=== PATIENT | male | born 1960 | race Caucasian/White ===

== ENCOUNTER 2016-11-29 18:59 | Inpatient (IN) | payer BC ==
[2016-11-29] MEDS ORDERED: Sodium Chloride 0.9% 10 ML Syringe FLUSH PRN (20:07)
[2016-11-29] MEDS ORDERED: Ondansetron 4 MG Tab.DIS PO ONE (20:08)
[2016-11-29] MEDS ORDERED: Sodium Chloride 0.9% 1,000 ML IV SCH (20:15)
[2016-11-29] MEDS ORDERED: Pantoprazole 40 MG Tab.CR PO PRN (23:33)
[2016-11-30] MEDS ORDERED: Acetaminophen 325 MG Tab PO PRN (01:34)
[2016-11-30] MEDS: Amoxicillin 500 MG Cap PO SCH ×4 (01:50→23:59)
[2016-11-30] MEDS: QUEtiapine 100 MG Tab PO PRN (01:50)
[2016-11-30] MEDS: Mometasone Furoate Nasal Spray 17 GM Canister NASBOTH SCH ×2 (06:03→20:58)
--- NOTE | 2016-11-30 07:00 | EDM.PDOC ---
ED HISTORY OF PRESENT ILLNESS - General Chief Complaint: Gastrointestinal Problem Stated Complaint: VOMITING/DIZZINESS/SWEATY Time Seen by Provider: 11/29/16 19:35 Source: Reports: Family History Limitations: Reports: Altered mental status - History of Present Illness INITIAL COMMENTS - FREE TEXT/NARRATIVE: This patient comes in with some vomiting and just general feeling bad all over. Back in August he had a nephrectomy. He said it was a complex cyst and it took a long time to do the surgery to" get it all out". He said it was not malignant however. He complained of having the carotid for 3 weeks. He is said there was a sinus infection he was given a Z-Luis that didn't help so now he 's taken some amoxicillin. Today he started vomiting at 4 PM has vomited a couple of times and then had dry heaves. He said he coughed up a little bit of bloody sputum a while ago and brought the sample with him. He describes a feeling of be loopy. He also mentions a 40 pound weight loss since the surgery. He also had some problems with sodium and potassium after the surgery. - Related Data Allergies/ADRs: Allergies Allergy/AdvReac Type Severity Reaction Status Date / Time No Known Allergies Allergy Verified 11/29/16 19:40 Home Meds: Home Meds Levothyroxine Sodium [Levothyroxine Sodium] 75 mcg PO DAILY 08/11/14 [History] QUEtiapine Fumarate [Quetiapine Fumarate] 100 - 200 mg PO BEDTIME PRN 08/11/14 [ History] Venlafaxine HCl [Venlafaxine ER] 75 mg PO TID 08/11/14 [History] clonazePAM [Clonazepam] 1 mg PO ACBREAKFAST 08/11/14 [History] Aspirin [Ecotrin] 81 mg PO DAILY 07/09/16 [History] Calcium Citrate/Vitamin D3 [Calcium Citrate - Vit D Tablet] 1 tab PO BID [History] Cranberry Extract/Multivitamin [Utymax Powder Pack] 1 cap PO DAILY 07/09/16 [ History] Dextroamphetamine/Amphetamine [Adderall] 30 mg PO DAILY 07/09/16 [History] Multivitamin [Men's Multi-Vitamin] 1 tab PO DAILY 07/09/16 [History] OXcarbazepine [Trileptal] 300 mg PO BID 07/09/16 [History] [place]-3/DHA/Epa/Fish Oil [[place] 3 500 Softgel] 2 cap PO DAILY 07/09/16 [History] Omeprazole 20 mg PO DAILY PRN 07/09/16 [History] Vitamin B Complex [B Complex] 1 tab PO DAILY 07/09/16 [History] ClonazePAM [KlonoPIN] 1 mg PO ACLUNCH 10/30/16 [History] ClonazePAM [KlonoPIN] 1.5 tab PO ACDINNER 10/30/16 [History] Mometasone Furoate [Nasonex] 2 sprays INH DAILY 10/30/16 [History] Amoxicillin 1 cap PO Q8H 11/29/16 [History] Past Medical History HEENT History: Reports: Impaired vision Cardiovascular History: Reports: Hypertension Gastrointestinal History: Reports: None Genitourinary History: Reports: Renal calculus, Other (see below) Other Genitourinary History: cysts on left kidney Musculoskeletal History: Reports: Arthritis, Other (see below) Other Musculoskeletal History: Bursitis Neurological History: Reports: Migraines Psychiatric History: Reports: Anxiety, Bipolar, Depression, OCD Endocrine/Metabolic History: Reports: Hypothyroidism Other Endocrine/Metabolic History: thyroid disease - Past Surgical History HEENT Surgical History: Reports: Tonsillectomy Cardiovascular Surgical History: Reports: None GI Surgical History: Reports: Bariatric procedure Male Surgical History: Reports: Other (see below) Other Male Surgeries/Procedures: right kidney removed, for mass of small cysts. Endocrine Surgical History: Reports: None Musculoskeletal Surgical History: Reports: None Dermatological Surgical History: Reports: None Social & Family History - Tobacco Use Smoking Status *Q: Never Smoker Second Hand Smoke Exposure: Yes - Caffeine Use Caffeine Use: Reports: None - Alcohol Use Days Per Week of Alcohol Use: 0 - Recreational Drug Use Recreational Drug Use: No ED ROS GENERAL - Review of Systems Review Of Systems: See Below Constitutional: Reports: malaise, weakness, decreased appetite, weight loss HEENT: Reports: No symptoms Respiratory: Reports: no symptoms Cardiovascular: Reports: No symptoms Endocrine: Reports: no symptoms GI/Abdominal: Reports: Nausea, Vomiting : Reports: no symptoms Musculoskeletal: Reports: no symptoms Skin: Reports: no symptoms Neurological: Reports: no symptoms Psychiatric: Reports: No symptoms Hematologic/Lymphatic: Reports: no symptoms Immunologic: Reports: no symptoms ED EXAM, GENERAL - Physical Exam Exam: See Below Exam Limited By: No limitations General Appearance: alert, moderate distress, thin (Then and chronically ill appearing) Eye Exam: bilateral eye: normal inspection Ears: normal external exam Nose: normal inspection Throat/Mouth: Normal oropharynx Head: atraumatic Neck: normal inspection Respiratory/Chest: lungs clear Cardiovascular: regular rate, rhythm, no murmur GI/Abdominal: soft, non tender Back Exam: normal inspection Extremities: normal inspection Neurological: alert, oriented, CN II-XII intact, normal cognition, no motor/ sensory deficits Psychiatric: normal affect Skin Exam: Dry, Intact, Other (Hands are very cold) Lymphatic: no adenopathy Course - Vital Signs Last Recorded V/S: Last Vital Signs Temp 35.8 C 11/30/16 04:00 Pulse 76 11/30/16 04:00 Resp 18 11/30/16 04:00 BP 103/70 11/30/16 04:00 Pulse Ox 98 11/30/16 04:00 - Orders/Labs/Meds Orders: Active Orders 24 hr Category Date Time Status Patient Status [ADT] Routine ADT 11/29/16 22:46 Active Chest 2V [CR] Urgent Exams 11/29/16 20:07 Taken Sodium Chloride 0.9% [Normal Saline] 1,000 ml Med 11/29/16 20:15 Active IV ASDIRECTED Sodium Chloride 0.9% [Saline Flush] Med 11/29/16 20:07 Active 10 ml FLUSH ASDIRECTED PRN Saline Lock Insert [OM.PC] Urgent Oth 11/29/16 20:07 Ordered Medication Orders Acetaminophen (Tylenol) 650 mg PO Q4H PRN PRN Reason: Pain Last Admin: 11/30/16 01:50 Dose: 650 mg Amoxicillin (Amoxil) 500 mg PO Q8H MENDEZ Last Admin: 11/30/16 01:50 Dose: 500 mg Clonazepam (Klonopin) 1 mg PO ACLUNCH MENDEZ Clonazepam (Klonopin) 1.5 mg PO ACDINNER MENDEZ Clonazepam (Klonopin) 1 mg PO ACBREAKFAST MENDEZ Sodium Chloride (Normal Saline) 1,000 mls @ 999 mls/hr IV ASDIRECTED MENDEZ Last Admin: 11/29/16 20:32 Dose: 999 mls/hr Levothyroxine Sodium (Levothyroxine) 75 mcg PO DAILY MENDEZ Mometasone Furoate (Nasonex [place]) 0 gm NASBOTH BEDTIME MENDEZ Last Admin: 11/30/16 06:03 Dose: Oxcarbazepine (Trileptal) 300 mg PO BID [facility] Pantoprazole Sodium (Protonix) 40 mg PO DAILY PRN PRN Reason: Heartburn Pneumococcal Polyvalent Vaccine (Pneumovax 23) 0.5 ml SUBCUT .ONCE ONE Stop: 11/30/16 10:01 Quetiapine Fumarate (Seroquel) 100 - 200 mg PO BEDTIME PRN PRN Reason: Insomnia Last Admin: 11/30/16 01:50 Dose: 150 mg Sodium Chloride (Saline Flush) 10 ml FLUSH ASDIRECTED PRN PRN Reason: Keep Vein Open Last Admin: 11/29/16 20:32 Dose: 10 ml Venlafaxine HCl (Effexor Xr) 75 mg PO TID [facility] Labs: Laboratory Tests 11/29/16 11/29/16 11/29/16 Range/Units 20:07 20:07 20:39 WBC 12.8 H (4.5-11.0) K/uL RBC 4.25 L (4.30-5.90) M/uL Hgb 10.7 L (12.0-15.0) g/dL Hct 33.3 L (40.0-54.0) % MCV 78 L (80-98) fL MCH 25 L (27-31) pg MCHC 32 (32-36) % Plt Count 585 H (150-400) K/uL Neut % (Auto) 91 H (36-66) % Lymph % (Auto) 5 L (24-44) % [place] % (Auto) 3 (2-6) % Eos % (Auto) 1 L (2-4) % Baso % (Auto) 0 (0-1) % Sodium 127 L (140-148) mmol/L Potassium 5.3 H (3.6-5.2) mmol/L Chloride 94 L (100-108) mmol/L Carbon Dioxide 23 (21-32) mmol/L Anion Gap 15.3 H (5.0-14.0) mmol/L BUN 19 H (7-18) mg/dL Creatinine 1.2 (0.8-1.3) mg/dL Est Cr Clr Drug Dosing 65.71 mL/min Estimated GFR (MDRD) > 60 (>60) Glucose 134 H (74-106) mg/dL Calcium 8.4 L (8.5-10.1) mg/dL Total Bilirubin 0.2 (0.2-1.0) mg/dL AST 15 (15-37) U/L ALT 25 (12-78) U/L Alkaline Phosphatase 133 H (46-116) U/L Total Protein 7.6 (6.4-8.2) g/dL Albumin 3.1 L (3.4-5.0) g/dL Globulin 4.5 H (2.3-3.5) g/dL Albumin/Globulin Ratio 0.7 L (1.2-2.2) Urine Color Yellow Urine Appearance Clear Urine pH 5.0 (4.5-8.0) Ur Specific [place] 1.025 (1.008-1.030) Urine Protein Negative (NEGATIVE) mg/dL Urine Glucose (UA) Normal (NEGATIVE) mg/dL Urine Ketones Negative (NEGATIVE) mg/dL Urine Occult Blood Negative (NEGATIVE) Urine Nitrite Negative (NEGAITVE) Urine Bilirubin Negative (NEGATIVE) Urine Urobilinogen Normal (NORMAL) mg/dL Ur Leukocyte Esterase Negative (NEGATIVE) Urine RBC 0-5 (0-5) Urine WBC 0-5 (0-5) Ur Epithelial Cells Rare Amorphous Sediment Not seen Urine Bacteria Not seen Urine Mucus Not seen Meds: Medications Generic Name Dose Route Start Last Admin Trade Name Freq PRN Reason Stop Dose Admin Acetaminophen 650 mg 11/30/16 01:34 11/30/16 01:50 Tylenol PO 650 mg Q4H PRN Administration Pain Amoxicillin 500 mg 11/30/16 00:00 11/30/16 01:50 Amoxil PO 500 mg Q8H MENDEZ Administration Clonazepam 1 mg 11/30/16 11:00 Klonopin PO ACLUNCH MENDEZ Clonazepam 1.5 mg 11/30/16 16:00 Klonopin PO ACDINNER MENDEZ Clonazepam 1 mg 11/30/16 07:30 Klonopin PO ACBREAKFAST MENDEZ Sodium Chloride 1,000 mls @ 999 mls/hr 11/29/16 20:15 11/29/16 20:32 Normal Saline IV 999 mls/hr ASDIRECTED MENDEZ Administration Levothyroxine Sodium 75 mcg 11/30/16 09:00 Levothyroxine PO DAILY MENDEZ Mometasone Furoate 0 gm 11/30/16 02:30 11/30/16 06:03 Nasonex [place] NASBOTH Not Given BEDTIME MENDEZ Oxcarbazepine 300 mg 11/30/16 09:00 Trileptal PO BID MENDEZ Pantoprazole Sodium 40 mg 11/29/16 23:33 Protonix PO DAILY PRN Heartburn Pneumococcal Polyvalent Vaccine 0.5 ml 11/30/16 10:00 Pneumovax 23 SUBCUT 11/30/16 10:01 .ONCE ONE Quetiapine Fumarate 100 - 200 mg 11/29/16 23:33 11/30/16 01:50 Seroquel PO 150 mg BEDTIME PRN Administration Insomnia Sodium Chloride 10 ml 11/29/16 20:07 11/29/16 20:32 Saline Flush FLUSH 10 ml ASDIRECTED PRN Administration Keep Vein Open Venlafaxine HCl 75 mg 11/30/16 09:00 Effexor Xr PO TID MENDEZ Discontinued Medications Generic Name Dose Route Start Last Admin Trade Name Freq PRN Reason Stop Dose Admin Ondansetron HCl 8 mg 11/29/16 20:08 11/29/16 20:31 Zofran Odt PO 11/29/16 20:09 8 mg ONETIME ONE Administration - Radiology Interpretation Free Text/Narrative:: Chest x-ray showed a round mass approximately 4 cm in diameter and the posterior part of the mid right lung field. The shape is round but not well circumscribed - Re-Assessments/Exams Free Text/Narrative Re-Assessment/Exam: 11/30/16 07:[address] Lewis after informing the patient and he has come in to admit the patient Departure - Departure Time of Disposition: 07:02 Disposition: Admitted As Inpatient 65 Condition: serious Clinical Impression: Lung mass - My Orders Last 24 Hours: My Active Orders 11/29/16 20:07 Chest 2V [CR] Urgent Sodium Chloride 0.9% [Saline Flush] 10 ml FLUSH ASDIRECTED PRN Saline Lock Insert [OM.PC] Urgent 11/29/16 20:15 Sodium Chloride 0.9% [Normal Saline] 1,000 ml IV ASDIRECTED - Assessment/Plan Last 24 Hours: My Active Orders 11/29/16 20:07 Chest 2V [CR] Urgent Sodium Chloride 0.9% [Saline Flush] 10 ml FLUSH ASDIRECTED PRN Saline Lock Insert [OM.PC] Urgent 11/29/16 20:15 Sodium Chloride 0.9% [Normal Saline] 1,000 ml IV ASDIRECTED
[2016-11-30] MEDS: Acetaminophen/Codeine 300-30 MG Tab PO PRN ×4 (08:04→22:25)
[2016-11-30] MEDS: Levothyroxine 75 MCG Tab PO SCH (08:04)
[2016-11-30] MEDS: Venlafaxine 75 MG Cap.ER PO SCH ×3 (08:05→20:57)
[2016-11-30] MEDS: ClonazePAM 1 MG Tab PO SCH ×2 (08:08→12:10)
--- NOTE | 2016-11-30 08:56 | CR ---
Chest 2V HISTORY: Pain COMPARISON: Chest x-ray 05/18/2015. FINDINGS: Round mass in the right midlung zone measuring 4.3 cm projected posteriorly towards the sellers perior segment of the right lower lobe. This could be infectious or neoplastic. Left lung is clear. Cardiac size and pulmonary vessels normal. Recommend CT scan.
[2016-11-30] MEDS ORDERED: OXcarbazepine 300 MG Tab PO SCH (09:00)
[2016-11-30] MEDS: Polyethylene Glycol 3350 Powder 119 GM Bottle PO SCH ×2 (09:52→11:18)
[2016-11-30] MEDS ORDERED: Pneumococcal Polyvalent-23 Vaccine 0.5 ML SDV SUBCUT ONE (10:00)
[2016-11-30] MEDS: OXcarbazepine 300 MG Tab PO SCH ×2 (14:37→20:57)
[2016-11-30] MEDS ORDERED: ClonazePAM 0.5 MG Tab PO SCH (16:00)
[2016-11-30] MEDS ORDERED: ClonazePAM 1 MG Tab PO SCH (16:00)
[2016-11-30] MEDS: ClonazePAM 0.5 MG Tab PO SCH (18:25)
--- NOTE | 2016-11-30 18:25 | PCM.HP ---
H&P History of Present Illness - General Date of Service: 11/29/16 Admit Problem/Dx: Admission Diagnosis/Problem Admission Diagnosis/Problem Lung mass Source of Information: Patient History Limitations: Reports: No limitations - History of Present Illness Initial Comments - Free Text/Narative: This is a redictation as the first dictation was lost in the system. Duane is a 56-year-old male who started to have pain yesterday and was vomiting and had shortness of breath and sweating. This progressed and he became increasingly concerned. He's lost 40 pounds in the last few months and has no appetite. He states that he has been coughing and had come to the office and start him on amoxicillin 3 days ago. At that time he did not want a chest x- ray today than he felt was bronchitis and was bring up large amount of yellow- green material. He stated it is was having low-grade fevers as well. He came into the emergency room this evening because of not feeling well and started to sweat with any activity. Onset of Symptoms: Reports: sudden Duration of Symptoms: Reports: Day(s): Location: Reports: chest Associated Symptoms: Reports: cough, diaphoresis, fever/chills, loss of appetite , weakness, other (Nausea without vomiting) Headache Pain Score (Numeric/FACES): 4 - Related Data Allergies/Adverse Reactions: Allergies Allergy/AdvReac Type Severity Reaction Status Date / Time No Known Allergies Allergy Verified 11/29/16 19:40 Home Medications: Home Meds Levothyroxine Sodium [Levothyroxine Sodium] 75 mcg PO DAILY 08/11/14 [History] QUEtiapine Fumarate [Quetiapine Fumarate] 100 - 200 mg PO BEDTIME PRN 08/11/14 [ History] Venlafaxine HCl [Venlafaxine ER] 75 mg PO TID 08/11/14 [History] clonazePAM [Clonazepam] 1 mg PO ACBREAKFAST 08/11/14 [History] Aspirin [Ecotrin] 81 mg PO DAILY 07/09/16 [History] Calcium Citrate/Vitamin D3 [Calcium Citrate - Vit D Tablet] 1 tab PO BID [History] Cranberry Extract/Multivitamin [Utymax Powder Pack] 1 cap PO DAILY 07/09/16 [ History] Dextroamphetamine/Amphetamine [Adderall] 30 mg PO DAILY 07/09/16 [History] Multivitamin [Men's Multi-Vitamin] 1 tab PO DAILY 07/09/16 [History] OXcarbazepine [Trileptal] 300 mg PO BID 07/09/16 [History] [place]-3/DHA/Epa/Fish Oil [[place] 3 500 Softgel] 2 cap PO DAILY 07/09/16 [History] Omeprazole 20 mg PO DAILY PRN 07/09/16 [History] Vitamin B Complex [B Complex] 1 tab PO DAILY 07/09/16 [History] ClonazePAM [KlonoPIN] 1 mg PO ACLUNCH 10/30/16 [History] ClonazePAM [KlonoPIN] 1.5 tab PO ACDINNER 10/30/16 [History] Mometasone Furoate [Nasonex] 2 sprays INH DAILY 10/30/16 [History] Amoxicillin 1 cap PO Q8H 11/29/16 [History] OXcarbazepine [Trileptal] 600 mg PO BEDTIME 11/30/16 [History] Past Medical History HEENT History: Reports: Impaired vision Cardiovascular History: Reports: Hypertension Gastrointestinal History: Reports: None Genitourinary History: Reports: Renal calculus, Other (see below) Other Genitourinary History: cysts on left kidney Musculoskeletal History: Reports: Arthritis, Other (see below) Other Musculoskeletal History: Bursitis Neurological History: Reports: Migraines Psychiatric History: Reports: Anxiety, Bipolar, Depression, OCD Endocrine/Metabolic History: Reports: Hypothyroidism Other Endocrine/Metabolic History: thyroid disease - Past Surgical History HEENT Surgical History: Reports: Tonsillectomy Cardiovascular Surgical History: Reports: None GI Surgical History: Reports: Bariatric procedure Male Surgical History: Reports: Other (see below) Other Male Surgeries/Procedures: right kidney removed, for mass of small cysts. Endocrine Surgical History: Reports: None Musculoskeletal Surgical History: Reports: None Dermatological Surgical History: Reports: None Social & Family History - Tobacco Use Smoking Status *Q: Never Smoker Second Hand Smoke Exposure: Yes - Caffeine Use Caffeine Use: Reports: None - Alcohol Use Days Per Week of Alcohol Use: 0 - Recreational Drug Use Recreational Drug Use: No H&P Review of Systems - Review of Systems: Review Of Systems: See Below General: Reports: fever, chills, weakness, diaphoresis HEENT: Reports: no symptoms Pulmonary: Reports: cough Cardiovascular: Reports: dyspnea on exertion Gastrointestinal: Reports: No symptoms Genitourinary: Reports: no symptoms Musculoskeletal: Reports: no symptoms Psychiatric: Reports: depression, anxiety Neurological: Reports: weakness Exam - Exam Exam: See Below - Vital Signs Vital Signs: Last Vital Signs Temp 97.7 F 11/30/16 14:32 Pulse 87 11/30/16 14:32 Resp 17 11/30/16 14:32 BP 121/80 11/30/16 14:32 Pulse Ox 98 11/30/16 14:32 Weight: 177 lb 12.8 oz - Exam General: alert, oriented, cooperative, moderate distress HEENT: PERRLA, Conjunctiva clear, EACs clear, Hearing intact, Nares patent, Normal nasal septum Neck: supple Lungs: Clear to auscultation, Normal respiratory effort Cardiovascular: regular rate, regular rhythm Abdomen: normal bowel sounds, soft Back Exam: normal inspection, full range of motion, NT Extremities: 3, normal inspection, 10 Skin: warm, dry, intact Psychiatric: alert, anxious, depressed - Patient Data Result Diagrams: 11/29/16 20:07 11/29/16 20:07 Rick Results last 24 hrs: Microbiology 11/30/16 01:17 Gram Stain - Final Sputum - Expectorated *Q Meaningful Use (ADM) - VTE *Q VTE Criteria *Q: - Stroke *Q Stroke Criteria *Q: - AMI *Q AMI Criteria *Q: Problem List Initiated/Reviewed/Updated: Yes Orders Last 24hrs: Active Orders 24 hr Category Date Time Status Patient Status [ADT] Routine ADT 11/29/16 23:31 Active Ambulate [RC] QID Care 11/29/16 23:31 Active Height and Weight [RC] DAILY Care 11/29/16 23:31 Active Intake and Output [RC] QSHIFT Care 11/29/16 23:32 Active Notify Provider Consults [RC] ASDIRECTED Care 11/30/16 00:04 Active Oxygen Therapy [RC] PRN Care 11/29/16 23:31 Active Up ad [place] [RC] ASDIRECTED Care 11/29/16 23:31 Active Up to Chair [RC] QID Care 11/29/16 23:31 Active VTE/DVT Education [RC] Per Unit Routine Care 11/29/16 23:31 Active Vital Signs [RC] Q4H Care 11/29/16 23:31 Active Full Liquid Diet [DIET] Diet 11/30/16 Breakfast Ordered NPO After Midnight [Nothing per Oral After Midnight Diet 11/30/16 Dinner Active Diet] [DIET] Abdomen 2V AP Flat Upright [CR] Routine Exams 12/01/16 04:00 Ordered Chest wo Cont [CT] Routine Exams 11/30/16 00:45 Taken CBC W/O DIFF,HEMOGRAM [HEME] Routine Lab 12/01/16 04:00 Ordered COMPREHENSIVE METABOLIC PN,CMP [CHEM] Routine Lab 12/01/16 04:00 Ordered CULTURE FUNGAL [MYC] Routine Lab 11/30/16 01:17 Received CULTURE RESPIRATORY + SMEAR [RM] Routine Lab 11/30/16 01:17 Results FERRITIN [CHEM] Routine Lab 12/01/16 04:00 Ordered FOLIC ACID [CHEM] Routine Lab 12/01/16 04:00 Ordered MAGNESIUM [CHEM] Routine Lab 12/01/16 04:00 Ordered PHOSPHORUS [CHEM] Routine Lab 12/01/16 04:00 Ordered PTT,PARTIAL THROMBOPLSTIN TIME [COAG] Routine Lab 12/01/16 04:00 Ordered VITAMIN B12 [CHEM] Routine Lab 12/01/16 04:00 Ordered Acetaminophen [Tylenol] Med 11/30/16 01:34 Active 650 mg PO Q4H PRN Acetaminophen/Codeine [Tylenol with Codeine No.3 300MG/ Med 11/30/16 07:17 Active 30MG] 1 - 2 tab PO Q4H PRN Amoxicillin [Amoxil] Med 11/30/16 00:00 Active 500 mg PO Q8H ClonazePAM [KlonoPIN] Med 11/30/16 07:30 Active 1 mg PO ACBREAKFAST ClonazePAM [KlonoPIN] Med 11/30/16 11:00 Active 1 mg PO ACLUNCH ClonazePAM [KlonoPIN] Med 11/30/16 18:00 Active 1.5 mg PO Q24H Levothyroxine Med 11/30/16 09:00 Active 75 mcg PO DAILY Mometasone Furoate [Nasonex [place]] Med 11/30/16 02:30 Active 0 gm NASBOTH BEDTIME OXcarbazepine [Trileptal] Med 11/30/16 14:00 Active 300 mg PO BID@0800,1200 OXcarbazepine [Trileptal] Med 11/30/16 21:00 Active 600 mg PO BEDTIME Pantoprazole [Protonix] Med 11/29/16 23:33 Active 40 mg PO DAILY PRN QUEtiapine [SEROquel] Med 11/29/16 23:33 Active 100 - 200 mg PO BEDTIME PRN Venlafaxine [Effexor XR] Med 11/30/16 09:00 Active 75 mg PO TID SCD [Sequential Compression Device] [OM.PC] Routine Oth 11/30/16 01:13 Ordered Resuscitation Status Routine Resus Stat 11/29/16 23:31 Ordered Medication Orders Acetaminophen (Tylenol) 650 mg PO Q4H PRN PRN Reason: Pain Last Admin: 11/30/16 01:50 Dose: 650 mg Acetaminophen/Codeine Phosphate (Tylenol With Codeine No.3 300mg/30mg) 1 - 2 tab PO Q4H PRN PRN Reason: Pain Last Admin: 11/30/16 12:15 Dose: 2 tab Admin: 11/30/16 08:04 Dose: 2 tab Amoxicillin (Amoxil) 500 mg PO Q8H [facility] Last Admin: 11/30/16 16:33 Dose: 500 mg Admin: 11/30/16 08:28 Dose: 500 mg Admin: 11/30/16 01:50 Dose: 500 mg Clonazepam (Klonopin) 1 mg PO ACLUNCH [facility] Last Admin: 11/30/16 12:10 Dose: 1 mg Clonazepam (Klonopin) 1 mg PO ACBREAKFAST [facility] Last Admin: 11/30/16 08:08 Dose: 1 mg Clonazepam (Klonopin) 1.5 mg PO Q24H [facility] Sodium Chloride (Normal Saline) 1,000 mls @ 999 mls/hr IV ASDIRECTED [facility] Last Admin: 11/29/16 20:32 Dose: 999 mls/hr Levothyroxine Sodium (Levothyroxine) 75 mcg PO DAILY [facility] Last Admin: 11/30/16 08:04 Dose: 75 mcg Mometasone Furoate (Nasonex [place]) 0 gm NASBOTH BEDTIME [facility] Last Admin: 11/30/16 06:03 Dose: Oxcarbazepine (Trileptal) 300 mg PO BID@0800,1200 [facility] Last Admin: 11/30/16 14:37 Dose: 300 mg Oxcarbazepine (Trileptal) 600 mg PO BEDTIME [facility] Pantoprazole Sodium (Protonix) 40 mg PO DAILY PRN PRN Reason: Heartburn Quetiapine Fumarate (Seroquel) 100 - 200 mg PO BEDTIME PRN PRN Reason: Insomnia Last Admin: 11/30/16 01:50 Dose: 150 mg Sodium Chloride (Saline Flush) 10 ml FLUSH ASDIRECTED PRN PRN Reason: Keep Vein Open Last Admin: 11/29/16 20:32 Dose: 10 ml Venlafaxine HCl (Effexor Xr) 75 mg PO TID MENDEZ Last Admin: 11/30/16 14:38 Dose: 75 mg Admin: 11/30/16 08:05 Dose: 75 mg Assessment/Plan Comment:: Assessment/plan: #1. Lung mass. I have put him in into the hospital and do a CT of the chest and consult Dr. Bennett's for a bronchoscopy. I told him this could be a fungus or cancer and he is aware of this. I have ordered sputum for cytology as well as fungus and culture. #2. Depression. I restarted his medication. #3. Bipolar disorder. I restarted his medication well he is in the hospital. #4. Anxiety. We'll continue with this medication for anxiety #5. Insomnia. Seroquel has been added for insomnia which also she is his bipolar disorder.
--- NOTE | 2016-11-30 18:34 | PCM.PN ---
- General Info Date of Service: 11/30/16 Subjective Update: He did have a CAT scan today and he said he is feeling okay waiting for the bronchoscopy tomorrow he has no other concerns. He did have a significant headache this morning I gave him Tylenol No. 3. - Review of Systems General: Reports: weakness HEENT: Reports: no symptoms Pulmonary: Reports: cough Cardiovascular: Reports: no symptoms Gastrointestinal: Reports: No symptoms Genitourinary: Reports: no symptoms Musculoskeletal: Reports: no symptoms Skin: Reports: no symptoms Neurological: Reports: no symptoms Psychiatric: Reports: depression, anxiety - Patient Data Vitals - most recent: Last Vital Signs Temp 97.7 F 11/30/16 14:32 Pulse 87 11/30/16 14:32 Resp 17 11/30/16 14:32 BP 121/80 11/30/16 14:32 Pulse Ox 98 11/30/16 14:32 Weight - most recent: 177 lb 12.8 oz I&O - last 24 hours: Intake & Output 11/30/16 11/30/16 11/30/16 06:59 14:59 22:59 Intake Total 1355 945 560 Output Total 150 700 Balance 1205 945 -140 Rick Results last 24 hrs: Microbiology 11/30/16 01:17 Gram Stain - Final Sputum - Expectorated Med Orders - Current: Current Medications Acetaminophen (Tylenol) 650 mg PO Q4H PRN PRN Reason: Pain Last Admin: 11/30/16 01:50 Dose: 650 mg Acetaminophen/Codeine Phosphate (Tylenol With Codeine No.3 300mg/30mg) 1 - 2 tab PO Q4H PRN PRN Reason: Pain Last Admin: 11/30/16 18:29 Dose: 2 tab Amoxicillin (Amoxil) 500 mg PO Q8H [facility] Last Admin: 11/30/16 16:33 Dose: 500 mg Clonazepam (Klonopin) 1 mg PO ACLUNCH [facility] Last Admin: 11/30/16 12:10 Dose: 1 mg Clonazepam (Klonopin) 1 mg PO ACBREAKFAST [facility] Last Admin: 11/30/16 08:08 Dose: 1 mg Clonazepam (Klonopin) 1.5 mg PO Q24H [facility] Last Admin: 11/30/16 18:25 Dose: 1.5 mg Sodium Chloride (Normal Saline) 1,000 mls @ 999 mls/hr IV ASDIRECTED [facility] Last Admin: 11/29/16 20:32 Dose: 999 mls/hr Levothyroxine Sodium (Levothyroxine) 75 mcg PO DAILY [facility] Last Admin: 11/30/16 08:04 Dose: 75 mcg Mometasone Furoate (Nasonex [place]) 0 gm NASBOTH BEDTIME [facility] Last Admin: 11/30/16 06:03 Dose: Not Given Oxcarbazepine (Trileptal) 300 mg PO BID@0800,1200 [facility] Last Admin: 11/30/16 14:37 Dose: 300 mg Oxcarbazepine (Trileptal) 600 mg PO BEDTIME [facility] Pantoprazole Sodium (Protonix) 40 mg PO DAILY PRN PRN Reason: Heartburn Quetiapine Fumarate (Seroquel) 100 - 200 mg PO BEDTIME PRN PRN Reason: Insomnia Last Admin: 11/30/16 01:50 Dose: 150 mg Sodium Chloride (Saline Flush) 10 ml FLUSH ASDIRECTED PRN PRN Reason: Keep Vein Open Last Admin: 11/29/16 20:32 Dose: 10 ml Venlafaxine HCl (Effexor Xr) 75 mg PO TID [facility] Last Admin: 11/30/16 14:38 Dose: 75 mg Discontinued Medications Clonazepam (Klonopin) 1.5 mg PO ACDINNER [facility] Ondansetron HCl (Zofran Odt) 8 mg PO ONETIME ONE Stop: 11/29/16 20:09 Last Admin: 11/29/16 20:31 Dose: 8 mg Oxcarbazepine (Trileptal) 300 mg PO BID [facility] Last Admin: 11/30/16 08:05 Dose: 300 mg Pneumococcal Polyvalent Vaccine (Pneumovax 23) 0.5 ml SUBCUT .ONCE ONE Stop: 11/30/16 10:01 Last Admin: 11/30/16 14:58 Dose: 0.5 ml Polyethylene Glycol (Miralax) 119 gm PO BID@0900,1200 [facility] Stop: 11/30/16 12:01 Last Admin: 11/30/16 11:18 Dose: 119 gram - Exam General: alert, oriented HEENT: Pupils equal, Pupils reactive, EOMI, Mucous membr. moist/pink Neck: supple Lungs: Clear to auscultation, Normal respiratory effort Cardiovascular: regular rate, regular rhythm Abdomen: bowel sounds present, soft, no tenderness, no distension Extremities: no edema Peripheral Pulses: 2+: radial (L), radial (R) Skin: warm, dry, intact Neurological: no new focal deficit Psy/Mental Status: anxious, depressed - Problem List Review Problem List Initiated/Reviewed/Updated: Yes - My Orders Last 24 Hours: My Active Orders 11/29/16 23:31 Patient Status [ADT] Routine Ambulate [RC] QID Height and Weight [RC] DAILY Oxygen Therapy [RC] PRN Up ad [place] [RC] ASDIRECTED Up to Chair [RC] QID VTE/DVT Education [RC] Per Unit Routine Vital Signs [RC] Q4H Resuscitation Status Routine 11/29/16 23:32 Intake and Output [RC] QSHIFT 11/29/16 23:33 Pantoprazole [Protonix] 40 mg PO DAILY PRN QUEtiapine [SEROquel] 100 - 200 mg PO BEDTIME PRN 11/30/16 00:00 Amoxicillin [Amoxil] 500 mg PO Q8H 11/30/16 00:04 Notify Provider Consults [RC] ASDIRECTED 11/30/16 00:45 Chest wo Cont [CT] Routine 11/30/16 01:13 SCD [Sequential Compression Device] [OM.PC] Routine 11/30/16 01:17 CULTURE FUNGAL [MYC] Routine CULTURE RESPIRATORY + SMEAR [RM] Routine 11/30/16 01:34 Acetaminophen [Tylenol] 650 mg PO Q4H PRN 11/30/16 02:30 Mometasone Furoate [Nasonex [place]] 0 gm NASBOTH BEDTIME 11/30/16 07:17 Acetaminophen/Codeine [Tylenol with Codeine No.3 300MG/30MG] 1 - 2 tab PO Q4H PRN 11/30/16 07:30 ClonazePAM [KlonoPIN] 1 mg PO ACBREAKFAST 11/30/16 09:00 Levothyroxine 75 mcg PO DAILY Venlafaxine [Effexor XR] 75 mg PO TID 11/30/16 11:00 ClonazePAM [KlonoPIN] 1 mg PO ACLUNCH 11/30/16 14:00 OXcarbazepine [Trileptal] 300 mg PO BID@0800,1200 11/30/16 18:00 ClonazePAM [KlonoPIN] 1.5 mg PO Q24H 11/30/16 21:00 OXcarbazepine [Trileptal] 600 mg PO BEDTIME - Plan Plan:: Assessment/plan: #1. Lung mass. CT of the chest was done this morning which shows that it should be able to place get some idea what the cells would be about a bronchoscopy which is scheduled for tomorrow. Certainly this could be a cancer but unknown at the present time. The WBC is elevated and elevated segs. MCV is low. Iron studies pending. #2. Depression. I restarted his medication. #3. Bipolar disorder. I restarted his medication well he is in the hospital. #4. Anxiety. We'll continue with this medication for anxiety #5. Insomnia. Seroquel has been added for insomnia which also she is his bipolar disorder.
[2016-12-01] MEDS: QUEtiapine 100 MG Tab PO PRN ×2 (00:05→23:38)
[2016-12-01] MEDS: Acetaminophen/Codeine 300-30 MG Tab PO PRN ×4 (04:06→20:06)
--- NOTE | 2016-12-01 08:29 | PCM.PN ---
- General Info Date of Service: 12/01/16 Admission Dx/Problem (Free Text): He will be going for a bronchoscopy today. He has no complaints at present time. His headache is controlled at the present medication. Functional Status: Reports: pain controlled - Review of Systems General: Reports: no symptoms HEENT: Reports: no symptoms Pulmonary: Reports: no symptoms Cardiovascular: Reports: no symptoms Gastrointestinal: Reports: No symptoms Genitourinary: Reports: no symptoms Musculoskeletal: Reports: no symptoms Neurological: Reports: no symptoms Psychiatric: Reports: no symptoms - Patient Data Vitals - most recent: Last Vital Signs Temp 97.4 F 12/01/16 07:00 Pulse 86 12/01/16 07:00 Resp 18 12/01/16 07:00 BP 120/81 12/01/16 07:00 Pulse Ox 99 12/01/16 07:00 Weight - most recent: 177 lb 12.8 oz I&O - last 24 hours: Intake & Output 11/30/16 12/01/16 12/01/16 22:59 06:59 14:59 Intake Total 1505 1100 Output Total 700 Balance 805 1100 Lab Results last 24 hrs: Laboratory Results - last 24 hr 12/01/16 12/01/16 12/01/16 Range/Units 04:00 04:00 05:11 WBC 9.5 (4.5-11.0) K/uL RBC 3.99 L (4.30-5.90) M/uL Hgb 10.0 L (12.0-15.0) g/dL Hct 31.7 L (40.0-54.0) % MCV 79 L (80-98) fL MCH 25 L (27-31) pg MCHC 32 (32-36) % Plt Count 560 H (150-400) K/uL Neut % (Auto) 66 (36-66) % Lymph % (Auto) 19 L (24-44) % Atkinson % (Auto) 10 H (2-6) % Eos % (Auto) 4 (2-4) % Baso % (Auto) 1 (0-1) % APTT 34.8 (27.0-36.0) sec Sodium 130 L (140-148) mmol/L Potassium 5.2 (3.6-5.2) mmol/L Chloride 97 L (100-108) mmol/L Carbon Dioxide 27 (21-32) mmol/L Anion Gap 11.2 (5.0-14.0) mmol/L BUN 15 (7-18) mg/dL Creatinine 1.1 (0.8-1.3) mg/dL Est Cr Clr Drug Dosing 71.95 mL/min Estimated GFR (MDRD) > 60 (>60) Glucose 78 (74-106) mg/dL Calcium 8.2 L (8.5-10.1) mg/dL Phosphorus 3.7 (2.5-4.9) mg/dL Magnesium 2.0 (1.8-2.4) mg/dL Iron (65-175) ug/dL TIBC (250-450) ug/dl % Saturation (20-55) % Ferritin 48 (8-388) ng/ml Total Bilirubin 0.2 (0.2-1.0) mg/dL AST 10 L (15-37) U/L ALT 19 (12-78) U/L Alkaline Phosphatase 116 (46-116) U/L Total Protein 6.7 (6.4-8.2) g/dL Albumin 2.7 L (3.4-5.0) g/dL Globulin 4.0 H (2.3-3.5) g/dL Albumin/Globulin Ratio 0.7 L (1.2-2.2) Vitamin B12 1089 H (193-986) pg/ml Folate 6.4 L (8.6-58.9) ng/ml /12/15 Range/Units 06:10 WBC (4.5-11.0) K/uL RBC (4.30-5.90) M/uL Hgb (12.0-15.0) g/dL Hct (40.0-54.0) % MCV (80-98) fL MCH (27-31) pg MCHC (32-36) % Plt Count (150-400) K/uL Neut % (Auto) (36-66) % Lymph % (Auto) (24-44) % Atkinson % (Auto) (2-6) % Eos % (Auto) (2-4) % Baso % (Auto) (0-1) % APTT (27.0-36.0) sec Sodium (140-148) mmol/L Potassium (3.6-5.2) mmol/L Chloride (100-108) mmol/L Carbon Dioxide (21-32) mmol/L Anion Gap (5.0-14.0) mmol/L BUN (7-18) mg/dL Creatinine (0.8-1.3) mg/dL Est Cr Clr Drug Dosing mL/min Estimated GFR (MDRD) (>60) Glucose (74-106) mg/dL Calcium (8.5-10.1) mg/dL Phosphorus (2.5-4.9) mg/dL Magnesium (1.8-2.4) mg/dL Iron 22 L (65-175) ug/dL TIBC 215 L (250-450) ug/dl % Saturation 10 L (20-55) % Ferritin (8-388) ng/ml Total Bilirubin (0.2-1.0) mg/dL AST (15-37) U/L ALT (12-78) U/L Alkaline Phosphatase (46-116) U/L Total Protein (6.4-8.2) g/dL Albumin (3.4-5.0) g/dL Globulin (2.3-3.5) g/dL Albumin/Globulin Ratio (1.2-2.2) Vitamin B12 (193-986) pg/ml Folate (8.6-58.9) ng/ml Rick Results last 24 hrs: Microbiology 11/30/16 01:17 Gram Stain - Final Sputum - Expectorated Respiratory Culture - Preliminary NORMAL RESPIRATORY BACILIO 1 DAY Med Orders - Current: Current Medications Acetaminophen (Tylenol) 650 mg PO Q4H PRN PRN Reason: Pain Last Admin: 11/30/16 01:50 Dose: 650 mg Acetaminophen/Codeine Phosphate (Tylenol With Codeine No.3 300mg/30mg) 1 - 2 tab PO Q4H PRN PRN Reason: Pain Last Admin: 12/01/16 04:06 Dose: 2 tab Amoxicillin (Amoxil) 500 mg PO Q8H [facility] Last Admin: 11/30/16 23:59 Dose: 500 mg Clonazepam (Klonopin) 1 mg PO ACLUNCH [facility] Last Admin: 11/30/16 12:10 Dose: 1 mg Clonazepam (Klonopin) 1 mg PO ACBREAKFAST [facility] Last Admin: 11/30/16 08:08 Dose: 1 mg Clonazepam (Klonopin) 1.5 mg PO Q24H [facility] Last Admin: 11/30/16 18:25 Dose: 1.5 mg Sodium Chloride (Normal Saline) 1,000 mls @ 999 mls/hr IV ASDIRECTED [facility] Last Admin: 11/29/16 20:32 Dose: 999 mls/hr Levothyroxine Sodium (Levothyroxine) 75 mcg PO DAILY [facility] Last Admin: 11/30/16 08:04 Dose: 75 mcg Mometasone Furoate (Nasonex [place]) 0 gm NASBOTH BEDTIME [facility] Last Admin: 11/30/16 20:58 Dose: 2 sprays Oxcarbazepine (Trileptal) 300 mg PO BID@0800,1200 [facility] Last Admin: 11/30/16 14:37 Dose: 300 mg Oxcarbazepine (Trileptal) 600 mg PO BEDTIME [facility] Last Admin: 11/30/16 20:57 Dose: 600 mg Pantoprazole Sodium (Protonix) 40 mg PO DAILY PRN PRN Reason: Heartburn Quetiapine Fumarate (Seroquel) 100 - 200 mg PO BEDTIME PRN PRN Reason: Insomnia Last Admin: 12/01/16 00:05 Dose: 150 mg Sodium Chloride (Saline Flush) 10 ml FLUSH ASDIRECTED PRN PRN Reason: Keep Vein Open Last Admin: 11/29/16 20:32 Dose: 10 ml Venlafaxine HCl (Effexor Xr) 75 mg PO TID [facility] Last Admin: 11/30/16 20:57 Dose: 75 mg Discontinued Medications Clonazepam (Klonopin) 1.5 mg PO ACDINNER [facility] Ondansetron HCl (Zofran Odt) 8 mg PO ONETIME ONE Stop: 11/29/16 20:09 Last Admin: 11/29/16 20:31 Dose: 8 mg Oxcarbazepine (Trileptal) 300 mg PO BID [facility] Last Admin: 11/30/16 08:05 Dose: 300 mg Pneumococcal Polyvalent Vaccine (Pneumovax 23) 0.5 ml SUBCUT .ONCE ONE Stop: 11/30/16 10:01 Last Admin: 11/30/16 14:58 Dose: 0.5 ml Polyethylene Glycol (Miralax) 119 gm PO BID@0900,1200 [facility] Stop: 11/30/16 12:01 Last Admin: 11/30/16 11:18 Dose: 119 gram - Exam General: alert, oriented Neck: supple Lungs: Clear to auscultation, Normal respiratory effort Cardiovascular: regular rate, regular rhythm Abdomen: bowel sounds present, soft, no tenderness, no distension Extremities: no edema Skin: warm, dry, intact Neurological: no new focal deficit Psy/Mental Status: alert - Problem List Review Problem List Initiated/Reviewed/Updated: Yes - My Orders Last 24 Hours: My Active Orders 11/30/16 07:30 ClonazePAM [KlonoPIN] 1 mg PO ACBREAKFAST 11/30/16 09:00 Levothyroxine 75 mcg PO DAILY Venlafaxine [Effexor XR] 75 mg PO TID 11/30/16 11:00 ClonazePAM [KlonoPIN] 1 mg PO ACLUNCH 11/30/16 14:00 OXcarbazepine [Trileptal] 300 mg PO BID@0800,1200 11/30/16 18:00 ClonazePAM [KlonoPIN] 1.5 mg PO Q24H 11/30/16 21:00 OXcarbazepine [Trileptal] 600 mg PO BEDTIME - Assessment Assessment:: Assessment/plan: #1. Lung mass. He said a bronchoscopy today by Dr. Santosh Bennett and he will discharge when stable. #2. Mental illness condition stable. Bipolar disorder. #3. Anemia. His hemoglobin is 10. His Lee cath in was low we'll replace this supplementation. I sensitivities are pending. We'll need to do further evaluations of the anemia. Total iron-binding capacity was 215 low this is consistent with anemia of chronic disease. We'll complete the evaluation once the identification of the mass in the lung is completed. - Plan Plan:: Assessment/plan: #1. Lung mass. CT of the chest was done this morning which shows that it should be able to place get some idea what the cells would be about a bronchoscopy which is scheduled for tomorrow. Certainly this could be a cancer but unknown at the present time. The WBC is elevated and elevated segs. MCV is low. Iron studies pending. #2. Depression. I restarted his medication. #3. Bipolar disorder. I restarted his medication well he is in the hospital. #4. Anxiety. We'll continue with this medication for anxiety #5. Insomnia. Seroquel has been added for insomnia which also she is his bipolar disorder.
[2016-12-01] MEDS: ClonazePAM 1 MG Tab PO SCH ×2 (09:07→11:34)
[2016-12-01] MEDS: Folic Acid 1 MG Tab PO SCH (09:08)
[2016-12-01] MEDS: Amoxicillin 500 MG Cap PO SCH ×3 (09:09→23:39)
[2016-12-01] MEDS: OXcarbazepine 300 MG Tab PO SCH ×3 (09:09→20:07)
[2016-12-01] MEDS: Venlafaxine 75 MG Cap.ER PO SCH ×3 (09:10→20:07)
[2016-12-01] MEDS: Levothyroxine 75 MCG Tab PO SCH (09:11)
--- NOTE | 2016-12-01 10:08 | CR ---
Abdomen 2V AP Flat Upright HISTORY: Obstipation COMPARISON: 08/11/2014. FINDINGS: Bowel gas pattern nonobstructive. No free air seen. Surgical clips overlying stomach. Scat tered air throughout nondilated small bowel and colon. Bony structures appear unremarkable. Impression: Nonspecific bowel gas pattern.
[2016-12-01] MEDS ORDERED: fentaNYL 100 MCG/2 ML SDV ONE (10:33)
[2016-12-01] MEDS ORDERED: Propofol 200 MG/20 ML SDV ONE (10:33)
[2016-12-01] MEDS ORDERED: Midazolam 1 MG/ML 2 ML SDV ONE (10:33)
[2016-12-01] MEDS ORDERED: Lidocaine 4% Top Soln 4 ML LTA Syringe ONE (13:05)
[2016-12-01] MEDS ORDERED: Lidocaine 4% Top Soln 50 ML Bottle ONE (13:25)
[2016-12-01] MEDS ORDERED: Lidocaine 2% Viscous Solution 15 ML Cup ONE (13:25)
[2016-12-01] MEDS ORDERED: Lactated Ringers 1,000 ML ONE (13:56)
[2016-12-01] MEDS: ClonazePAM 0.5 MG Tab PO SCH (17:58)
[2016-12-01] MEDS: Mometasone Furoate Nasal Spray 17 GM Canister NASBOTH SCH (23:38)
[2016-12-02] MEDS: Acetaminophen/Codeine 300-30 MG Tab PO PRN ×3 (01:47→12:46)
[2016-12-02 06:58] VITALS: BP 104/61
[2016-12-02] MEDS: OXcarbazepine 300 MG Tab PO SCH ×2 (08:27→11:28)
[2016-12-02] MEDS: Folic Acid 1 MG Tab PO SCH (08:28)
[2016-12-02] MEDS: Venlafaxine 75 MG Cap.ER PO SCH (08:28)
[2016-12-02] MEDS: Amoxicillin 500 MG Cap PO SCH (08:29)
[2016-12-02] MEDS: Levothyroxine 75 MCG Tab PO SCH (08:30)
[2016-12-02] MEDS: ClonazePAM 1 MG Tab PO SCH ×2 (08:32→11:31)
--- NOTE | 2016-12-02 13:28 | PN ---
DATE OF SERVICE: 12/01/2016 The patient has been afebrile with stable vital signs. He did have good results from the MiraLAX yesterday, and the plan will be to proceed with the bronchoscopy later today. He will probably be ready for discharge home tomorrow. The PET scan were in the process of setting up in [place] and plan will be to see him in the clinic after the PET scan has been completed, and then we will decide where to go from there in terms of management. Timothy Bennett MD /[id number]
--- NOTE | 2016-12-02 17:04 | DISCH ---
FINAL DIAGNOSES: 1. Right lower lobe masses x2. 2. Constipation. 3. Bariatric surgery status. 4. History of depression. OPERATIVE PROCEDURE: Flexible bronchoscopy with tracheobronchial washings and brushings with bronchoalveolar lavage to right lower lobe. HOSPITAL COURSE: This is a 56-year-old male presenting with some weight loss and constipation. Initial workup included a chest x-ray and subsequently a CT scan. There was a large subpleural mass, in the right lower lobe, along with a tiny 1.2 cm spiculated mass in the right lower lobe as well. There was no evidence of metastatic disease on the CT scan. Bronchoscopy was obtained, And he will be scheduled for a PET scan at [facility], between those two tests, to determine the next steps. If these do appear to be neoplastic by PET scan and there is no evidence of regional or distant metastatic disease, we would like to proceed with thoracotomy at that point. We will be in contact with the patient over the next couple of weeks. He will be contacted by the [facility] for setting up the PET scan in the next few days. He will be continuing his usual medications plus Senna Plus 2 tablets p.o. daily, #60, refill x1, this will be called in.
--- NOTE | 2016-12-04 07:32 | CONS ---
DATE OF SERVICE: 11/30/2016 REFERRING PHYSICIAN: CONSULTING PHYSICIAN: Timothy Bennett MD HISTORY OF PRESENT ILLNESS: This is a 56-year-old status post Temo-en-Y gastric bypass several years ago, presenting here with nausea, vomiting, and upper abdominal pain. He was noted to have quite a bit in the way of stool and not having moved his bowels for several days. Overnight, the nausea and vomiting have subsided, and he is passing some gas. Abdominal exam is otherwise unremarkable. PLAN: The plan will be to give him a trial of MiraLAX this morning. We will start him on a MiraLAX colonoscopy prep. If that is successful, will proceed from there, as far as diet goes. If that gives him more problems, he will probably need a CT scan of the abdomen. One additional finding is that of some problems on the right lower lobe with a spiculated 1.2 cm lesion in the right lower lobe. There is also a 3.7 cm round circumscribed subpleural mass with some possible cavitation located in the right lower lobe as well. The plan with regard to that will be to obtain a bronchoscopy tomorrow morning and, most likely thereafter, a PET scan to determine whether or not there is any regional or distant metastatic disease. If there is not, the next step would be a resection of that area of concern. We will plan the bronchoscopy tomorrow morning. We will obtain some bariatric followup laboratory studies on the patient tomorrow morning as well. Timothy Bennett MD /[id number]
--- NOTE | 2016-12-07 10:12 | OR ---
DATE OF PROCEDURE: 12/01/2016 PREOPERATIVE DIAGNOSIS: Right lower lobe masses x2. POSTOPERATIVE DIAGNOSIS: Right lower lobe masses x2. OPERATIVE PROCEDURE: Flexible bronchoscopy with tracheobronchial washings and; 1. Brushings of the right lower lobe (55604). 2. Broncholavage to right lower lobe (77409). ANESTHESIA: Topical plus IV sedation. INDICATION FOR PROCEDURE: This is a 56-year-old who presented with some GI upset. At this time, at workup he is known to have some mass on chest x-ray. CT scan showed a subtotal mass in the right lower lobe along with this additional smaller mass with some contracture around at both sites, suggesting possible neoplasia. Plan is to proceed with a flexible bronchoscopy with biopsies of lavage and brushing as indicated. Potential risks including bleeding, infection, pneumothorax and such were reviewed, and the patient wishes to proceed. DETAILS OF PROCEDURE: The patient was taken to the operating room and placed in a supine position. IV sedation was administered, after which the translaryngeal injection of lidocaine was placed per anesthesia. The bronchoscope was then passed through the left side of the nose, visualized nasopharynx, hypopharynx, and larynx were unremarkable. Cord motion was symmetrical. Within the trachea, there was no significant increased secretions and no distortion of the trachea or course. The left tracheobronchial tree was entirely normal. The lateral basilar segment of the right lower lobe did appear to be somewhat narrowed and this would likely be the site of the patient's pathology. To this point, diffuse tracheobronchial washings were obtained. At this point, brushings were obtained to the 2 basilar segmental bronchi heading off in a lateral direction, which should likely pickler helper the areas that were seen on the CT scan. Following this, both areas were then injected with 200 mL of saline and the return was fairly clear, and at that point, no further problems were noted and the patient was taken to the recovery room in satisfactory condition. The plan at this point will be to await the report on today's exams and also set him up for a PET scan in [place]. Timothy Bennett MD /[id number]
== END 2016-12-02 13:00 | disposition home or self-care (01) | DRG 861 ==
LOC: JP.ED 18:59 → JP.MS 22:47
PROVIDERS: ADMIT Internal Medicine; ATTEND Surgery
PROC: 0B968ZX Drainage of Right Lower Lobe Bronchus, Via Natural or Artificial Opening Endoscopic, Diagnostic (ICD-10-PCS; principal; 2016-12-01)
PROC: 0BBF8ZX Excision of Right Lower Lung Lobe, Via Natural or Artificial Opening Endoscopic, Diagnostic (ICD-10-PCS; principal; 2016-12-01)
PROC: 0BJ08ZZ Inspection of Tracheobronchial Tree, Via Natural or Artificial Opening Endoscopic (ICD-10-PCS; principal; 2016-12-01)
DX: R84.6 Abnormal cytological findings in specimens from respiratory organs and thorax (principal); R91.8 Other nonspecific abnormal finding of lung field; I10 Essential (primary) hypertension; E03.9 Hypothyroidism, unspecified; F31.9 Bipolar disorder, unspecified; Z23 Encounter for immunization; G47.00 Insomnia, unspecified; D64.9 Anemia, unspecified; K59.00 Constipation, unspecified; F41.9 Anxiety disorder, unspecified; Z90.5 Acquired absence of kidney; Z98.84 Bariatric surgery status; Z98.0 Intestinal bypass and anastomosis status; M19.90 Unspecified osteoarthritis, unspecified site; H54.7 Unspecified visual loss; R63.4 Abnormal weight loss; Z79.82 Long term (current) use of aspirin
CPT/HCPCS: 36415; 71020; 71020-26; 71250; 74020; 74020-26; 80053; 81001; 82607; 82728; 82746; 83550; 83735; 84100; 85025; 85730; 87015; 87070; 87102; 87116; 87205; 87206; 87220; 88112; 88305; 88312; 90732; 96360; 99285-25; A9270-GY; J2250; J2704; J3010; J7040; J7050; J7120

== ENCOUNTER 2016-12-25 07:07 | Inpatient (IN) | payer BC ==
[~2016-12-25 07:07] MED LIST: Bupivacaine 0.5%/EPINEPHrine 1:200,000 50 ML MDV ONE
[2016-12-25] MEDS ORDERED: Albuterol 0.083% 2.5 MG/3 ML Neb Soln NEB ONE (07:40)
[2016-12-25] MEDS ORDERED: Albuterol 0.083% 2.5 MG/3 ML Neb Soln ONE (07:49)
[2016-12-25] MEDS ORDERED: Dextrose 5%-Lactated Ringers 1,000 ML IV SCH (09:00)
[2016-12-25] MEDS ORDERED: Naloxone 0.4 MG/ML SDV IVPUSH PRN (09:08)
[2016-12-25] MEDS ORDERED: fentaNYL 250 MCG/5 ML SDV ONE (09:12)
[2016-12-25] MEDS ORDERED: ceFAZolin 2 GM in Premix Bag 1 BAG IV ONE (10:00)
[2016-12-25] MEDS ORDERED: ceFAZolin 2 GM in Sodium Chloride 0.9% 50 ML IV ONE (10:00)
[2016-12-25] MEDS ORDERED: Neostigmine Methylsulfate 1 MG/ML 5 ML Syringe ONE (10:03)
[2016-12-25] MEDS ORDERED: Rocuronium 50 MG/5 ML Vial ONE ×3 (10:03→11:45)
[2016-12-25] MEDS ORDERED: Dexamethasone 4 MG/ML SDV ONE (10:03)
[2016-12-25] MEDS ORDERED: Succinylcholine/Normal Saline 200 MG/10 ML Syringe ONE (10:03)
[2016-12-25] MEDS ORDERED: Propofol 200 MG/20 ML SDV ONE (10:03)
[2016-12-25] MEDS ORDERED: Ondansetron 4 MG/2 ML SDV ONE (10:03)
[2016-12-25] MEDS ORDERED: Sodium Chloride 0.9% 10 ML ONE (10:47)
[2016-12-25] MEDS ORDERED: Sodium Chloride 0.9% 500 ML ONE (10:47)
[2016-12-25] MEDS ORDERED: fentaNYL 100 MCG/2 ML SDV ONE (10:48)
[2016-12-25] MEDS ORDERED: Meropenem 500 MG SDV ONE (12:17)
[2016-12-25] MEDS ORDERED: Lactated Ringers 1,000 ML ONE (12:42)
--- NOTE | 2016-12-25 13:39 | CR ---
Chest 1V Frontal HISTORY: Right-sided chest tube placement right thoracotomy. COMPARISON: CT scan 11/30/2016. FINDINGS: Right-sided chest tube. Right thoracotomy change with some volume loss present. No pneumot horax. Minimal atelectatic changes medial right lung base.
[2016-12-25] MEDS ORDERED: Clindamycin Phosphate 900 MG in Sodium Chloride 0.9% 100 ML IV SCH (14:30)
[2016-12-25] MEDS ORDERED: Benzocaine/Cetylpyridinium/Menthol Lozenge MUCMEM PRN (14:34)
[2016-12-25] MEDS ORDERED: Ondansetron 4 MG/2 ML SDV IV PRN (14:39)
[2016-12-25] MEDS ORDERED: QUEtiapine 100 MG Tab PO PRN (14:45)
[2016-12-25] MEDS: Clindamycin Phosphate 900 MG in Sodium Chloride 0.9% 100 ML IV SCH ×2 (14:55→21:33)
[2016-12-25] MEDS ORDERED: Acetaminophen 1,000 MG in Premix Bag 1 BAG IV ONE (15:45)
[2016-12-25] MEDS ORDERED: MVI, Adult with Vitamin K 10 ML, Chromium/Copper/Mang/Selen/Zn 1 ML in Dextrose 5%-Lact... IV SCH ×3 (16:00)
[2016-12-25] MEDS: Amphetamine/Dextroamphetamine Salts 10 MG Tab PO SCH (18:10)
[2016-12-25] MEDS ORDERED: Venlafaxine 75 MG Cap.ER PO SCH (21:00)
[2016-12-25] MEDS: diphenhydrAMINE 50 MG/ML SDV IVPUSH PRN (21:14)
[2016-12-25] MEDS: ClonazePAM 0.5 MG Tab PO SCH (21:14)
[2016-12-25] MEDS: QUEtiapine 100 MG Tab PO SCH (21:14)
[2016-12-25] MEDS: OXcarbazepine 300 MG Tab PO SCH (21:14)
[2016-12-25] MEDS: Naloxone 0.4 MG/ML SDV IV PRN (21:15)
[2016-12-25] MEDS: Dextrose 5%-Lactated Ringers 1,000 ML IV SCH (21:15)
[2016-12-26] MEDS: Dextrose 5%-Lactated Ringers 1,000 ML IV SCH ×3 (03:13→21:50)
[2016-12-26] MEDS: Naloxone 0.4 MG/ML SDV IV PRN ×3 (03:14→21:52)
[2016-12-26] MEDS: Clindamycin Phosphate 900 MG in Sodium Chloride 0.9% 100 ML IV SCH ×3 (06:06→21:52)
[2016-12-26] MEDS: fentaNYL 2,500 MCG in Sodium Chloride 0.9% 200 ML EPIDUR SCH ×2 (07:21→20:37)
[2016-12-26] MEDS ORDERED: Acetaminophen 1,000 MG in Premix Bag 1 BAG IV ONE (08:00)
[2016-12-26] MEDS: OXcarbazepine 300 MG Tab PO SCH ×2 (08:50→20:35)
[2016-12-26] MEDS: Aspirin 81 MG Tab.EC PO SCH (08:51)
[2016-12-26] MEDS: ClonazePAM 1 MG Tab PO SCH (08:51)
[2016-12-26] MEDS: Levothyroxine 75 MCG Tab PO SCH (08:52)
[2016-12-26] MEDS: Pantoprazole 40 MG Tab.CR PO SCH (08:52)
[2016-12-26] MEDS: ClonazePAM 0.5 MG Tab PO SCH ×2 (08:52→20:35)
[2016-12-26] MEDS: Venlafaxine 75 MG Cap.ER PO SCH (08:52)
[2016-12-26] MEDS ORDERED: Mometasone Furoate Nasal Spray 17 GM Canister NASBOTH SCH (09:00)
--- NOTE | 2016-12-26 09:33 | CR ---
Chest 1V Frontal HISTORY: Right-sided chest tube. COMPARISON: 12/25/2016. FINDINGS: Right-sided chest tube unchanged. No identifiable pneumothorax. Presumed atelectatic sheikh e at the right lung base is partially resolved no new infiltrates bilaterally. No acute congestive c hange.
[2016-12-26] MEDS ORDERED: Meperidine PF 100 MG/ML Syringe IM PRN (11:06)
[2016-12-26] MEDS: Acetaminophen 500 MG Tab PO SCH ×2 (13:51→20:36)
[2016-12-26] MEDS: diphenhydrAMINE 50 MG/ML SDV IVPUSH PRN (18:44)
[2016-12-26] MEDS: Amphetamine/Dextroamphetamine Salts 10 MG Tab PO SCH (18:44)
[2016-12-26] MEDS: Mometasone Furoate Nasal Spray 17 GM Canister NASBOTH SCH (20:36)
[2016-12-26] MEDS: QUEtiapine 100 MG Tab PO SCH (20:36)
[2016-12-27] MEDS: diphenhydrAMINE 50 MG/ML SDV IVPUSH PRN ×3 (00:29→14:16)
[2016-12-27] MEDS: Acetaminophen 500 MG Tab PO SCH ×4 (01:40→19:38)
[2016-12-27] MEDS: Clindamycin Phosphate 900 MG in Sodium Chloride 0.9% 100 ML IV SCH ×3 (05:53→22:04)
[2016-12-27] MEDS: Dextrose 5%-Lactated Ringers 1,000 ML IV SCH (08:31)
[2016-12-27] MEDS: Naloxone 0.4 MG/ML SDV IV PRN (08:40)
[2016-12-27] MEDS: Levothyroxine 75 MCG Tab PO SCH (08:43)
[2016-12-27] MEDS: Pantoprazole 40 MG Tab.CR PO SCH (08:43)
[2016-12-27] MEDS: Ibuprofen 600 MG Tab PO SCH ×3 (08:44→19:39)
[2016-12-27] MEDS: Docusate Sodium 100 MG Cap PO SCH ×2 (08:45→20:58)
[2016-12-27] MEDS: Aspirin 81 MG Tab.EC PO SCH (08:46)
[2016-12-27] MEDS: Venlafaxine 75 MG Cap.ER PO SCH (08:46)
[2016-12-27] MEDS: OXcarbazepine 300 MG Tab PO SCH ×2 (08:47→20:58)
[2016-12-27] MEDS: ClonazePAM 0.5 MG Tab PO SCH ×2 (08:48→20:58)
[2016-12-27] MEDS: ClonazePAM 1 MG Tab PO SCH (08:49)
[2016-12-27] MEDS ORDERED: Cyanocobalamin (Vitamin B12) 1,000 MCG/ML SDV IM ONE (09:00)
--- NOTE | 2016-12-27 09:38 | CR ---
Chest 1V Frontal HISTORY: Chest tube post thoracotomy COMPARISON: Chest x-ray 12/26/2016. FINDINGS: Right-sided chest tube. Volume loss right hemithorax. Tiny right apical pneumothorax. Left lung is clear. No acute congestive change.
[2016-12-27] MEDS: Magnesium Sulfate/Water 2 GM in Premix Bag 1 BAG IV SCH ×3 (09:48→22:08)
[2016-12-27] MEDS: Iron Sucrose Complex 500 MG in Sodium Chloride 0.9% 250 ML IV SCH (10:32)
[2016-12-27] MEDS: fentaNYL 2,500 MCG in Sodium Chloride 0.9% 200 ML EPIDUR SCH (15:02)
[2016-12-27] MEDS ORDERED: MVI, Adult with Vitamin K 10 ML, Chromium/Copper/Mang/Selen/Zn 1 ML in Dextrose 5%-Lact... IV SCH ×3 (16:00)
[2016-12-27] MEDS: Amphetamine/Dextroamphetamine Salts 10 MG Tab PO SCH (17:50)
[2016-12-27] MEDS: QUEtiapine 100 MG Tab PO SCH (20:57)
[2016-12-27] MEDS: Mometasone Furoate Nasal Spray 17 GM Canister NASBOTH SCH (20:58)
[2016-12-28] MEDS: Dextrose 5%-Lactated Ringers 1,000 ML IV SCH ×2 (00:58→22:52)
[2016-12-28] MEDS: Ibuprofen 600 MG Tab PO SCH (02:11)
[2016-12-28] MEDS: Acetaminophen 500 MG Tab PO SCH ×4 (02:12→20:35)
[2016-12-28] MEDS: Naloxone 0.4 MG/ML SDV IV PRN (02:39)
[2016-12-28] MEDS ORDERED: fentaNYL 12 MCG/HR Transdermal Patch TRDERM SCH (03:00)
[2016-12-28] MEDS: Magnesium Sulfate/Water 2 GM in Premix Bag 1 BAG IV SCH ×4 (03:43→21:02)
[2016-12-28] MEDS: Clindamycin Phosphate 900 MG in Sodium Chloride 0.9% 100 ML IV SCH ×3 (05:50→22:46)
[2016-12-28] MEDS: oxyCODONE 5 MG Tab PO PRN ×5 (07:29→19:38)
[2016-12-28] MEDS: Levothyroxine 75 MCG Tab PO SCH (07:31)
[2016-12-28] MEDS: Pantoprazole 40 MG Tab.CR PO SCH (07:33)
[2016-12-28] MEDS: Bisacodyl 5 MG Tab PO SCH ×2 (08:37→20:35)
[2016-12-28] MEDS: Docusate Sodium 100 MG Cap PO SCH ×2 (08:37→20:34)
[2016-12-28] MEDS: Venlafaxine 75 MG Cap.ER PO SCH (08:38)
[2016-12-28] MEDS: Aspirin 81 MG Tab.EC PO SCH (08:38)
[2016-12-28] MEDS: OXcarbazepine 300 MG Tab PO SCH ×2 (08:39→20:34)
[2016-12-28] MEDS: ClonazePAM 1 MG Tab PO SCH (08:47)
[2016-12-28] MEDS: ClonazePAM 0.5 MG Tab PO SCH ×2 (08:47→21:01)
--- NOTE | 2016-12-28 09:22 | CR ---
Chest 1V Frontal HISTORY: Chest tube COMPARISON: 12/27/2016. FINDINGS: Very small right apical pneumothorax unchanged. Right-sided chest tube with post right tho racotomy changes. Minimal atelectatic change medial right lung base. Left lung is clear. No new infi ltrates.
[2016-12-28] MEDS: Iron Sucrose Complex 500 MG in Sodium Chloride 0.9% 250 ML IV SCH (10:05)
[2016-12-28] MEDS ORDERED: MVI, Adult with Vitamin K 10 ML, Chromium/Copper/Mang/Selen/Zn 1 ML in Dextrose 5%-Lact... IV ONE ×3 (12:15)
[2016-12-28] MEDS: Amphetamine/Dextroamphetamine Salts 10 MG Tab PO SCH (17:13)
--- NOTE | 2016-12-28 17:43 | PN ---
DATE OF SERVICE: 12/26/2016 He is complaining a little bit of uncontrolled pain. Given this, I think we will add some IV Tylenol initially and then go to oral Tylenol, and otherwise continue to maximize his activity and pulmonary toilet. Chest x-ray looks good with no air leaks present. Nothing further on the cultures with Gram stain and both aerobic and anaerobic cultures showing some gram-positive cocci. Labs show a blood gases with a pH now being normalized, and pO2 on no external oxygen being 115. White count is 9500, hemoglobin 9.1. Labs show quite low magnesium 1.5, it will be supplemented. Ferritin is fairly low. We will give him a B12 shot today and then probably give a single dose of Venofer tomorrow. We will him have some sips of liquids today. We will not push diet and leave the epidural catheter in for the next day or two. Timothy Bennett MD /[id number]
--- NOTE | 2016-12-28 18:25 | PN ---
DATE OF SERVICE: 12/28/2016 The patient is afebrile. Stable vital signs. Urine output has been satisfactory. The chest tube output was around 320 mL over the last 24 hours and his chest x-ray looks good. No air leaks are noted in the lung as well Pathology still pending and the labs showed creatinine bumping up a little bit at 1.4. Given this setting we will discontinue the ibuprofen and go with the Tylenol and oxycodone today for pain and otherwise maximize activity and work with pulmonary toilet. Timothy Bennett MD /[id number]
[2016-12-28] MEDS: Mometasone Furoate Nasal Spray 17 GM Canister NASBOTH SCH (20:35)
[2016-12-28] MEDS: QUEtiapine 100 MG Tab PO SCH (20:36)
[2016-12-28] MEDS: Meperidine PF 50 MG/ML Syringe IM PRN (21:02)
[2016-12-29] MEDS: Acetaminophen 500 MG Tab PO SCH ×4 (01:26→19:23)
[2016-12-29] MEDS: Magnesium Sulfate/Water 2 GM in Premix Bag 1 BAG IV SCH ×4 (03:16→22:04)
[2016-12-29] MEDS: oxyCODONE 5 MG Tab PO PRN ×4 (04:20→17:27)
[2016-12-29] MEDS: Clindamycin Phosphate 900 MG in Sodium Chloride 0.9% 100 ML IV SCH (06:05)
[2016-12-29] MEDS: Levothyroxine 75 MCG Tab PO SCH (07:15)
[2016-12-29] MEDS: Pantoprazole 40 MG Tab.CR PO SCH (07:15)
[2016-12-29] MEDS: Meperidine PF 50 MG/ML Syringe IM PRN ×3 (08:04→22:05)
[2016-12-29] MEDS ORDERED: Polyethylene Glycol 3350 Powder 119 GM Bottle PO ONE (09:00)
--- NOTE | 2016-12-29 09:00 | PN ---
DATE OF SERVICE: 12/27/2016 The patient has been afebrile with stable vital signs. With the adjustment of his epidural catheter infusion rate as well as the addition of the Tylenol he is much more comfortable appearing today. A chest tube output 125 mL in the last 24 hours and looks good. Urine output has been satisfactory and nothing new is noted in the area of microbiologic workup and pathology is still obviously pending. At this point, we will add ibuprofen on scheduled basis. We will add fentanyl patch early tomorrow, 3 hours prior to having the epidural catheter infusion turned off. Otherwise, his iron levels are low along with some anemia, and we will give him some Venofer today and tomorrow as well as some B12. His Magnesium is also low and will be supplemented. Otherwise, maximize activity and continue to work with pulmonary toilet. Timothy Bennett MD /[id number]
[2016-12-29] MEDS: Aspirin 81 MG Tab.EC PO SCH (09:06)
[2016-12-29] MEDS: OXcarbazepine 300 MG Tab PO SCH ×2 (09:06→22:04)
[2016-12-29] MEDS: Bisacodyl 5 MG Tab PO SCH ×2 (09:06→22:04)
[2016-12-29] MEDS: Venlafaxine 75 MG Cap.ER PO SCH (09:06)
[2016-12-29] MEDS: Docusate Sodium 100 MG Cap PO SCH ×2 (09:06→21:58)
[2016-12-29] MEDS: ClonazePAM 0.5 MG Tab PO SCH ×2 (09:07→22:05)
[2016-12-29] MEDS: ClonazePAM 1 MG Tab PO SCH (09:07)
--- NOTE | 2016-12-29 09:30 | PN ---
DATE OF SERVICE: 12/29/2016 SUBJECTIVE: Duane had an episode of increased pain. He was given Demerol 50 mg IM. After that, he slept well. He continues on the oral pain medication, and he has the fentanyl patch, and he states that he did sleep well after he received the Demerol. Intake; oral intake was 1080. He does have a Lee catheter in, and that put out 2425. His chest tube, 310. He has been afebrile. He has had no bowel movement. REVIEW OF SYSTEMS: Remainder of review of systems negative for any pertinent positives and negatives. OBJECTIVE: GENERAL: Duane Llamas is a 56-year-old male. He is alert and orientated, color pale. SKIN: Warm and dry. VITAL SIGNS: TPR 98, 85, 23, blood pressure is 115/100. Prior to that, his blood pressure had been 127/84 and 108/79. HEENT: Negative. NECK: Supple. HEART: Regular rate and rhythm. CHEST: Dressing is dry and intact. Chest tube in place. Lungs reveal decreased breath sounds bilaterally. Otherwise negative. ABDOMEN: Soft and nontender. EXTREMITIES: Without peripheral edema. ASSESSMENT: Right thoracotomy with resection of right lung mass with frozen section on 12/25/2016. PLAN: 1. Transfer to [address] [place] [address]. 2. Discontinue Lee. 3. Continue MiraLAX 119 g in 32 ounces of Gatorade today. 4. Good pulmonary toilet encouraged. 5. We will evaluate p.r.n. or in a.m. Shira Aldrich PA-C /[id number]
--- NOTE | 2016-12-29 09:58 | CR ---
Chest 1V Frontal HISTORY: Sided chest tube, postthoracotomy. COMPARISON: 12/28/2016. FINDINGS: Tiny right apical pneumothorax slightly improved from prior study. No new infiltrates. Rig ht-sided chest tube again noted.
[2016-12-29] MEDS: Dextrose 5%-Lactated Ringers 1,000 ML IV SCH (10:37)
[2016-12-29] MEDS: cefTRIAXone 1 GM in Sodium Chloride 0.9% 50 ML IV SCH (10:37)
[2016-12-29] MEDS: VERIFY FENT PATCH TOP SCH ×2 (10:39→22:03)
[2016-12-29] MEDS: Cyclobenzaprine 10 MG Tab PO PRN (15:59)
[2016-12-29] MEDS ORDERED: MVI, Adult with Vitamin K 10 ML, Chromium/Copper/Mang/Selen/Zn 1 ML in Dextrose 5%-Lact... IV SCH ×3 (16:00)
[2016-12-29] MEDS: Amphetamine/Dextroamphetamine Salts 10 MG Tab PO SCH (17:32)
[2016-12-29] MEDS: hydrOXYzine HCl 25 MG Tab PO PRN (19:20)
[2016-12-29] MEDS: Mometasone Furoate Nasal Spray 17 GM Canister NASBOTH SCH (22:02)
[2016-12-29] MEDS: QUEtiapine 100 MG Tab PO SCH (22:03)
[2016-12-30] MEDS: Cyclobenzaprine 10 MG Tab PO PRN ×3 (01:48→15:16)
[2016-12-30] MEDS: oxyCODONE 5 MG Tab PO PRN ×5 (01:48→19:35)
[2016-12-30] MEDS: Acetaminophen 500 MG Tab PO SCH ×4 (01:48→19:33)
[2016-12-30] MEDS: Dextrose 5%-Lactated Ringers 1,000 ML IV SCH (01:50)
[2016-12-30] MEDS: Magnesium Sulfate/Water 2 GM in Premix Bag 1 BAG IV SCH (03:30)
[2016-12-30] MEDS ORDERED: Magnesium Citrate Solution 296 ML Bottle PO ONE (08:00)
[2016-12-30] MEDS: fentaNYL 25 MCG/HR Transdermal Patch TRDERM SCH (08:41)
[2016-12-30] MEDS: hydrOXYzine HCl 25 MG Tab PO PRN ×3 (08:41→17:22)
[2016-12-30] MEDS: Venlafaxine 75 MG Cap.ER PO SCH (09:18)
[2016-12-30] MEDS: Aspirin 81 MG Tab.EC PO SCH (09:18)
[2016-12-30] MEDS: Pantoprazole 40 MG Tab.CR PO SCH (09:19)
[2016-12-30] MEDS: OXcarbazepine 300 MG Tab PO SCH ×2 (09:19→20:19)
[2016-12-30] MEDS: Levothyroxine 75 MCG Tab PO SCH (09:20)
[2016-12-30] MEDS: Bisacodyl 5 MG Tab PO SCH ×2 (09:21→20:17)
[2016-12-30] MEDS: Docusate Sodium 100 MG Cap PO SCH ×2 (09:21→20:17)
[2016-12-30] MEDS: ClonazePAM 0.5 MG Tab PO SCH ×2 (09:25→20:17)
[2016-12-30] MEDS: VERIFY FENT PATCH TOP SCH ×2 (09:25→20:18)
[2016-12-30] MEDS: ClonazePAM 1 MG Tab PO SCH (09:25)
[2016-12-30] MEDS: cefTRIAXone 1 GM in Sodium Chloride 0.9% 50 ML IV SCH (11:04)
[2016-12-30] MEDS ORDERED: Magnesium Citrate Solution 296 ML Bottle PO PRN (17:00)
[2016-12-30] MEDS: Amphetamine/Dextroamphetamine Salts 10 MG Tab PO SCH (17:22)
[2016-12-30] MEDS: Meperidine PF 50 MG/ML Syringe IM PRN (20:14)
[2016-12-30] MEDS: Mometasone Furoate Nasal Spray 17 GM Canister NASBOTH SCH (20:16)
[2016-12-30] MEDS: QUEtiapine 100 MG Tab PO SCH (20:19)
[2016-12-31] MEDS: oxyCODONE 5 MG Tab PO PRN ×6 (00:27→23:35)
[2016-12-31] MEDS: Cyclobenzaprine 10 MG Tab PO PRN ×4 (00:27→21:47)
[2016-12-31] MEDS: Acetaminophen 500 MG Tab PO SCH ×4 (02:13→19:11)
[2016-12-31] MEDS: Meperidine PF 50 MG/ML Syringe IM PRN ×2 (02:14→23:47)
[2016-12-31] MEDS ORDERED: LORazepam 1 MG Tab PO PRN (08:15)
[2016-12-31] MEDS: ClonazePAM 1 MG Tab PO SCH (08:19)
[2016-12-31] MEDS: hydrOXYzine HCl 25 MG Tab PO PRN ×2 (08:19→16:43)
[2016-12-31] MEDS: Docusate Sodium 100 MG Cap PO SCH ×2 (08:20→21:46)
[2016-12-31] MEDS: Levothyroxine 75 MCG Tab PO SCH (08:20)
[2016-12-31] MEDS: ClonazePAM 0.5 MG Tab PO SCH ×2 (08:20→21:47)
[2016-12-31] MEDS: Pantoprazole 40 MG Tab.CR PO SCH (08:20)
[2016-12-31] MEDS: Venlafaxine 75 MG Cap.ER PO SCH (08:21)
[2016-12-31] MEDS: VERIFY FENT PATCH TOP SCH ×2 (08:23→21:48)
[2016-12-31] MEDS: Aspirin 81 MG Tab.EC PO SCH (08:23)
[2016-12-31] MEDS: Bisacodyl 5 MG Tab PO SCH (08:23)
[2016-12-31] MEDS: OXcarbazepine 300 MG Tab PO SCH ×2 (08:25→21:46)
[2016-12-31] MEDS: cefTRIAXone 1 GM in Sodium Chloride 0.9% 50 ML IV SCH (10:42)
[2016-12-31] MEDS: Amphetamine/Dextroamphetamine Salts 10 MG Tab PO SCH (16:49)
[2016-12-31] MEDS: QUEtiapine 100 MG Tab PO SCH (21:47)
[2016-12-31] MEDS: Mometasone Furoate Nasal Spray 17 GM Canister NASBOTH SCH (21:47)
[2017-01-01] MEDS: oxyCODONE 5 MG Tab PO PRN ×5 (04:16→23:03)
[2017-01-01] MEDS: Acetaminophen 500 MG Tab PO SCH ×4 (04:17→21:25)
[2017-01-01] MEDS ORDERED: Zolpidem 5 MG Tab PO ONE (07:11)
--- NOTE | 2017-01-01 08:01 | PN ---
DATE OF SERVICE: 01/01/2017 SUBJECTIVE: Duane's chest tube put out 200. In the past 24 hours, his vital signs have been stable. His pain has been managed, still waiting for the final path report. He has no other questions or concerns. OBJECTIVE: GENERAL: Duane Llamas is a 56-year-old male. He is lying comfortably in bed. VITAL SIGNS: TPR 97.9, 79, 18. Blood pressure 118/78. HEENT: Negative. NECK: Supple. HEART: Regular rate and rhythm. LUNGS: Clear. Chest tube is in place. ABDOMEN: Soft and nontender. Dressing is in place. EXTREMITIES: Without peripheral edema. ASSESSMENT: Right thoracotomy with resection of right lung mass with frozen section on 12/25/2016. PLAN: 1. Ambien 10 mg p.r.n. bedtime. 2. We will check for final path report at clinic today. 3. Good pulmonary toilet. 4. We will evaluate p.r.n. or in a.m. Shira Aldrich PA-C /[id number]
[2017-01-01] MEDS: Docusate Sodium 100 MG Cap PO SCH ×2 (08:15→21:25)
[2017-01-01] MEDS: Aspirin 81 MG Tab.EC PO SCH (08:15)
[2017-01-01] MEDS: Pantoprazole 40 MG Tab.CR PO SCH (08:16)
[2017-01-01] MEDS: Levothyroxine 75 MCG Tab PO SCH (08:16)
[2017-01-01] MEDS: Venlafaxine 75 MG Cap.ER PO SCH (08:16)
[2017-01-01] MEDS: ClonazePAM 1 MG Tab PO SCH (08:17)
[2017-01-01] MEDS: ClonazePAM 0.5 MG Tab PO SCH ×2 (08:17→21:32)
[2017-01-01] MEDS: VERIFY FENT PATCH TOP SCH ×2 (08:18→21:27)
[2017-01-01] MEDS: OXcarbazepine 300 MG Tab PO SCH ×2 (08:18→21:28)
--- NOTE | 2017-01-01 08:19 | PN ---
DATE OF SERVICE: 12/30/2016 The patient has been afebrile with stable vital signs. Overall, appeared to be doing fairly well. Primary pathology at this point appears to be most likely benign, but the tissue was sent to [facility] for an overread to make sure there is not some occult bronchoalveolar cell carcinoma within the specimen. At any rate, he is not moving bowels as of yet. We will give him some magnesium citrate today. The pain control still is a little bit marginal, and I think we will move the fentanyl patch up to 25 mcg/hr size and otherwise saline lock the IV and maximize activity and work with pulmonary toilet. The chest tube output was 220 mL, and we will change to small [facility] type chest tube box today, which will probably facilitate decreasing the output and getting the chest tube removed. Timothy Bennett MD /[id number]
--- NOTE | 2017-01-01 09:46 | CR ---
Chest 1V Frontal HISTORY: chest tube management COMPARISON: 12/29/2016 FINDINGS: Portable chest, 0404 hours. Right chest tube is stable. Right thoracotomy changes are redemonstrated. Minute right apical pneumo thorax is redemonstrated. There is atelectasis right lung base. Remainder of the chest is clear. Car diomediastinal silhouette is within normal limits and stable. Remainder of the exam is unchanged. IMPRESSION: Stable postoperative chest. Tiny right apical pneumothorax does not appear significantly changed in the interval.
[2017-01-01] MEDS: cefTRIAXone 1 GM in Sodium Chloride 0.9% 50 ML IV SCH (11:56)
[2017-01-01] MEDS: Cyclobenzaprine 10 MG Tab PO PRN (15:41)
[2017-01-01] MEDS: Amphetamine/Dextroamphetamine Salts 10 MG Tab PO SCH (17:50)
[2017-01-01] MEDS ORDERED: Zolpidem 5 MG Tab PO PRN (21:00)
[2017-01-01] MEDS: Mometasone Furoate Nasal Spray 17 GM Canister NASBOTH SCH (21:26)
[2017-01-01] MEDS: QUEtiapine 100 MG Tab PO SCH (21:27)
[2017-01-02] MEDS: Acetaminophen 500 MG Tab PO SCH ×4 (02:50→21:25)
[2017-01-02] MEDS: oxyCODONE 5 MG Tab PO PRN ×6 (02:51→22:41)
--- NOTE | 2017-01-02 07:53 | PN ---
DATE OF SERVICE: 12/31/2016 The patient has been afebrile with stable vital signs. Chest tube output remains relatively high at over 200 and will leave that in place. Otherwise, he is a little bit anxious and will add some Ativan to the mix, which will be helpful in regard to the pain control and await the chest tube output to be diminished enough to pull those out. Timothy Bennett MD /[id number]
[2017-01-02] MEDS: ClonazePAM 1 MG Tab PO SCH (08:11)
[2017-01-02] MEDS: ClonazePAM 0.5 MG Tab PO SCH ×2 (08:11→21:35)
[2017-01-02] MEDS: Levothyroxine 75 MCG Tab PO SCH (08:14)
[2017-01-02] MEDS: Pantoprazole 40 MG Tab.CR PO SCH (08:14)
[2017-01-02] MEDS: fentaNYL 25 MCG/HR Transdermal Patch TRDERM SCH (08:15)
[2017-01-02] MEDS: Venlafaxine 75 MG Cap.ER PO SCH (08:20)
[2017-01-02] MEDS: Docusate Sodium 100 MG Cap PO SCH ×2 (08:20→21:25)
[2017-01-02] MEDS: Aspirin 81 MG Tab.EC PO SCH (08:20)
[2017-01-02] MEDS: OXcarbazepine 300 MG Tab PO SCH ×2 (08:21→21:27)
[2017-01-02] MEDS: VERIFY FENT PATCH TOP SCH ×2 (08:29→21:26)
--- NOTE | 2017-01-02 09:05 | CR ---
Chest 1V Frontal HISTORY: chest tube management COMPARISON: 01/01/2017 FINDINGS: Right thoracotomy changes are redemonstrated. Right chest tube is stable. No residual pneu mothorax can be seen on today's exam. Mild atelectasis right lung base is a little less prominent. R emainder the chest is clear. Cardiomediastinal silhouette is stable. Remainder of the exam is unchan ged. IMPRESSION: Stable right thoracotomy changes and chest tube. No residual pneumothorax can be seen on today's exam. Linear atelectasis right lung base appears mildly improved.
[2017-01-02] MEDS ORDERED: Magnesium Citrate Solution 296 ML Bottle PO ONE (10:00)
[2017-01-02] MEDS: cefTRIAXone 1 GM in Sodium Chloride 0.9% 50 ML IV SCH (10:13)
[2017-01-02] MEDS: Amphetamine/Dextroamphetamine Salts 10 MG Tab PO SCH (17:10)
[2017-01-02] MEDS ORDERED: Magnesium Citrate Solution 296 ML Bottle PO PRN (18:00)
[2017-01-02] MEDS: Mometasone Furoate Nasal Spray 17 GM Canister NASBOTH SCH (21:26)
[2017-01-02] MEDS: QUEtiapine 100 MG Tab PO SCH (21:27)
[2017-01-02] MEDS: hydrOXYzine HCl 25 MG Tab PO PRN (21:35)
[2017-01-02] MEDS: Cyclobenzaprine 10 MG Tab PO PRN (21:35)
[2017-01-03] MEDS: Acetaminophen 500 MG Tab PO SCH ×4 (02:34→20:18)
[2017-01-03] MEDS: oxyCODONE 5 MG Tab PO PRN ×5 (02:35→22:56)
--- NOTE | 2017-01-03 08:09 | PN ---
DATE OF SERVICE: 01/03/2017 SUBJECTIVE: His pain is controlled. He has been up ambulating. His chest tube put out 90 mL yesterday. He has no other questions or concerns. REVIEW OF SYSTEMS: Remainder of review of systems negative for any pertinent positives or negatives. OBJECTIVE: GENERAL: Duane Llamas is a 56-year-old male. He is alert and orientated. Color pale. VITAL SIGNS: TPR is 97.6, 72, 18, blood pressure 112/71. HEENT: Negative. NECK: Supple. HEART: Regular rate and rhythm. LUNGS: Clear. He has good air exchange. Chest tube was removed by Timothy Bennett MD this morning. He does have a pressure dressing on. ABDOMEN: Negative. EXTREMITIES: Without peripheral edema. ASSESSMENT: Right thoracotomy with resection of right lung mass with frozen section on 12/25/2016. PLAN: Check chest x-ray, PA and lateral in a.m. Continue same orders. Pressure dressing on. We will evaluate p.r.n. or in a.m. Shira Aldrich PA-C /[id number]
[2017-01-03] MEDS: Venlafaxine 75 MG Cap.ER PO SCH (08:19)
[2017-01-03] MEDS: OXcarbazepine 300 MG Tab PO SCH ×2 (08:20→22:57)
[2017-01-03] MEDS: Pantoprazole 40 MG Tab.CR PO SCH (08:20)
[2017-01-03] MEDS: Levothyroxine 75 MCG Tab PO SCH (08:20)
[2017-01-03] MEDS: Docusate Sodium 100 MG Cap PO SCH ×2 (08:20→20:18)
[2017-01-03] MEDS: Aspirin 81 MG Tab.EC PO SCH (08:20)
--- NOTE | 2017-01-03 08:24 | OR ---
DATE OF PROCEDURE: 12/25/2016 PREOPERATIVE DIAGNOSIS: Cavitating mass in the superior segment of right lower lobe. POSTOPERATIVE DIAGNOSES: 1. Cavitating mass in the superior segment of right lower lobe (probably benign by frozen section). 2. 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 OPERATIVE PROCEDURE: Right anterior lateral thoracotomy with: 1. Wedge resection of right lower lobe for frozen section (51088) followed by: 2. Superior segmentectomy of right lower lobe (17928). 3. Closure of bronchopleural fistula at lateral aspect of right upper lobe (83563). ANESTHESIA: General plus epidural. SENIOR PRODUCT CONSULTANT: Shira Aldrich PA-C. INDICATION FOR PROCEDURE: This is a 56-year-old male presenting with a large mass involving the superior segment of right lower lobe. This abutts the chest wall with there not being a clear plane of delineation between the visceral and parietal pleura at that point of contact. PET scan was obtained, which showed marked uptake in the mass, but no uptake otherwise, either within the hilum of the lung, mediastinum, or at distant sites. Preoperative bronchoscopy showed atypical cells, which would be somewhat suspicious for possible squamous cell carcinoma. Given all of this, plan is to proceed with an anterolateral thoracotomy. Will not proceed with a preliminary thoracoscopy, as the CO2 pressure used to deflate the lung might open up an area of adherence of tumor to the chest wall, thus contaminating the pleural space. Plan will be to proceed with resection of the mass with the extent of resection guided by frozen sections, as well as intraoperative findings. This would include potentially chest wall resection, if the mass is adherent to the chest wall. Potential risks of the procedure including bleeding, infection, and possible local or distant tumor recurrence, as well as possibility of cardiopulmonary, septic, or hemorrhagic complications leading to were discussed, and the patient wishes to proceed. FINDINGS: Upon entering the right pleural space, there was an area of probable inflammatory adherence to the lateral aspect of the right upper lobe. This was well away from the mass and would appear to be inflammatory upon its division. This did have persistent air leak at the end of case, which was closed by means of a local wedge resection. The mass itself was not adherent to the chest wall, and there was no pleural fluid or evidence of any pleural disease per se. Initial wedge resection of this was consistent with probable benign disease, although the pathologist was not willing to make a conclusive diagnosis at this point. Given the fact that the patient had a smaller nodule on CT scan, although not seen on the PET scan, in the more proximal aspect of the superior segment adjacent to the main mass, a superior segmentectomy was completed. This would be oncologically reasonable, should the final pathology come back something like this, although various tumor such as bronchoalveolar cell carcinoma, and also eliminate the possibility that this small nodule might be a malignancy as well. Frozen sections on this likewise were benign appearing. There was no significant hilar or mediastinal adenopathy noted. DETAILS OF PROCEDURE: The patient was taken to the operating room. After epidural catheter and arterial line were placed, general endotracheal anesthetic was induced with a double- lumen endotracheal tube. The patient was placed in a left lateral decubitus position, after a Lee catheter was positioned. An anterolateral thoracotomy through the bed of the fifth interspace was then accomplished, and upon entering the pleural space, the above-noted findings were identified. The adhesion between the lateral aspect of the right lobe was then divided, and at that point, the primary mass located in superior segment of right lower lobe was mobilized upward. The generous wedge resection was accomplished of this, using ANG hay with care taken to avoid entering the area of the mass itself. Frozen section that was obtained with the above-noted findings. At this point, a decision was made to remove the remainder of the superior segment, i.e. superior segmentectomy was completed to be sure that we are getting out that smaller nodule that was seen on CT scan. This dissection continued along the junction of the superior and basilar segments with the ANG stapler, and the root of the superior segment in terms of the bronchus artery and vein were then divided with ANG hay as well, and that specimen delivered from the field. The pathologist likewise looked at this and did not see any evidence of malignancy within the nodule on frozen section. At this point, no further problems were noted. On the re-inflation of the lung, the primary site of excision had no air leaks. There was a persistent air leak at the point where the adhesion had been taken down off of the right upper lobe, and the lung was then grasped and this was then excised by means of a ANG stapler as well, and at that point, there appeared to be no further air leaks. The bronchial closure site at the segmentectomy location was then reinforced with some fibrin sealant. A single 36-Ethiopian right-angle chest tube was then placed through a stab wound inferior to the main incision and placed across the area of the dissection. The wound edges were reapproximated with #2 Vicryl stitch with these being interrupted stitches and the musculature then closed with 2 layers of #1 Vicryl stitch and the skin closed with hay. Drain was affixed with some 2-0 Ethibond stitch. The patient was taken to the recovery room in satisfactory condition. Physician sales office assistant, Shira Aldrich, played an essential role in assisting in this case, helping to retract structures as needed, position the patient, as well as suturing and stapling when indicated. Her presence improved the patient's safety and decreased operative time. Timothy Bennett MD /[id number]
--- NOTE | 2017-01-03 08:50 | CR ---
Chest 1V Frontal HISTORY: chest tube management COMPARISON: 01/02/2017 FINDINGS: Right thoracotomy changes are stable. Right chest tube remains in place. A minute right ap ical pneumothorax can be seen on today's exam. There is mild atelectasis right lung base. Remainder of the chest is clear. No pleural fluid is identified. Cardiomediastinal silhouette is within normal limits and stable. IMPRESSION: Stable right thoracotomy changes. Chest tube is stable. Stable atelectasis right lung ba se. A tiny right apical pneumothorax can be seen on today's exam.
[2017-01-03] MEDS: cefTRIAXone 1 GM in Sodium Chloride 0.9% 50 ML IV SCH (10:09)
[2017-01-03] MEDS: VERIFY FENT PATCH TOP SCH ×2 (10:10→20:18)
[2017-01-03] MEDS: ClonazePAM 0.5 MG Tab PO SCH ×2 (10:20→23:00)
[2017-01-03] MEDS: ClonazePAM 1 MG Tab PO SCH (10:20)
[2017-01-03] MEDS: Amphetamine/Dextroamphetamine Salts 10 MG Tab PO SCH (17:12)
[2017-01-03] MEDS: Cyclobenzaprine 10 MG Tab PO PRN (21:05)
[2017-01-03] MEDS: Mometasone Furoate Nasal Spray 17 GM Canister NASBOTH SCH (22:56)
[2017-01-03] MEDS: QUEtiapine 100 MG Tab PO SCH (22:57)
[2017-01-04] MEDS: oxyCODONE 5 MG Tab PO PRN ×4 (02:26→16:49)
[2017-01-04] MEDS: Acetaminophen 500 MG Tab PO SCH ×3 (02:27→15:27)
[2017-01-04] MEDS: Levothyroxine 75 MCG Tab PO SCH (07:34)
[2017-01-04] MEDS: Pantoprazole 40 MG Tab.CR PO SCH (07:34)
[2017-01-04] MEDS: OXcarbazepine 300 MG Tab PO SCH (08:26)
[2017-01-04] MEDS: Venlafaxine 75 MG Cap.ER PO SCH (08:27)
[2017-01-04] MEDS: Docusate Sodium 100 MG Cap PO SCH (08:28)
[2017-01-04] MEDS: Aspirin 81 MG Tab.EC PO SCH (08:28)
[2017-01-04] MEDS: VERIFY FENT PATCH TOP SCH (08:30)
[2017-01-04] MEDS: ClonazePAM 0.5 MG Tab PO SCH (08:35)
[2017-01-04] MEDS: ClonazePAM 1 MG Tab PO SCH (08:35)
--- NOTE | 2017-01-04 09:10 | CR ---
Chest 2V HISTORY: removal of chest tube/01/03/17 FINDINGS: Right chest tube has removed since yesterday's exam. There is a minute right apical pneumo thorax which appears stable. Atelectasis right lung base is improved. Remainder the chest is clear. Cardiomediastinal silhouette is stable. Remainder the exam is unchanged. IMPRESSION: Stable appearance of the chest status post right chest tube removal. A very small right apical pneumothorax is stable.
--- NOTE | 2017-01-04 09:29 | PN ---
DATE OF SERVICE: 01/02/2017 The patient has been afebrile with stable vital signs. Pain control appears to be somewhat better, and we will give him some bowel stimulation today. Final pathology came back as a benign entity, which appeared to be more or less a lung abscess probably related to some aspiration. The chest tube output is still a bit too high over 200 mL, so we will leave that in for today. With the Pleur-Evac to just water seal will probably slow things down, and tentatively plan to get the chest tube out tomorrow. Timothy Bennett MD /[id number]
[2017-01-04 15:31] VITALS: BP 86/51
--- NOTE | 2017-01-05 10:25 | DISCH ---
ADMISSION DIAGNOSES: Cavitating mass in the superior segment of the right lower lobe, benign hypertension, depression, anxiety, B12 deficiency, dyslipidemia, allergic rhinitis, B complex deficiency, other and unspecified postsurgical malabsorption, chronic kidney disease, glomerular filtration rate between 45 and 59, albuminuria, creatinine ratio less than 30, and status post Temo-en-Y gastric bypass surgery. DISCHARGE DIAGNOSES: 1. Right anterolateral thoracotomy with:. a. Wedge resection of right lower lobe for frozen section followed by. b. Superior segmentectomy of right lower lobe. c. Closure of bronchopleural fistula at the lateral aspect of the right lower lobe. d. Cavitating mass in the superior segment of the right lower lobe (frozen section). 2. 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 HISTORY: Duane Llamas is a 56-year-old male presenting with a large mass involving the superior segment of the right lower lobe. After preoperative evaluation and discussion of possible risks and possible complications, he wished to proceed with surgical procedure. The preoperative bronchoscopy showed atypical cells somewhat suspicious for possible squamous cell carcinoma. HOSPITAL COURSE: The surgery was on 12/25/2016. He had no operative complications. A chest tube was placed. He was in the ICU, started on a [employer] for pain, and he had a fentanyl patch. On 12/26, he was given additional Tylenol 1 g for pain, and the next day, he was started on a regular diet. He had 2 doses of Venofer 500 mg for a low ferritin. On 12/22, he was admitted to regular floor. His oximetry and pain were managed appropriately. Chest tube was removed on 01/03/2017. He was able to be discharged on 01/04/2017. Vital signs were stable. He was afebrile. Pain was managed with fentanyl patch 25 mcg and oxycodone. OBJECTIVE: GENERAL: Duane Llamas is a 56-year-old male. He is alert and orientated. VITAL SIGNS: Height is 5 feet 8.11 inches, weight is 185 pounds. TPR is 97.8, 78, 18. Blood pressure 128/75. HEENT: Negative. NECK: Supple. HEART: Regular rate and rhythm. LUNGS: Dressing over chest tube site, dry. Lungs are clear with decreased breath sounds on the right base. ABDOMEN: Soft and nontender. EXTREMITIES: Without peripheral edema. DISPOSITION: Discharged to home. CONDITION: Stable and improving. FOLLOWUP APPOINTMENT: With Timothy Bennett M.D., at [facility] on 01/10/2017 at 10:00 a.m. with a chest x-ray, PA and lateral before appointment at 9:30. HOME MEDICATIONS: 1. Tylenol Extra Strength 1000 mg oral q.6 hours. 2. Colace 100 mg oral twice daily, #100. 3. Duragesic 25 mcg transdermal patch, patch to be changed on Saturday, January 07, 2017 and to replace the patch every 3 days, 72 hours. 4. Oxycodone 5 mg 1 to 2 every 4 hours p.r.n. pain, #50. He is to resume his home medications of aspirin 81 mg daily, calcium citrate 1 tablet twice daily, Klonopin 1.5 mg before dinner, Klonopin 1 mg before lunch, cranberry extract 1 capsule oral daily, Adderall 30 mg oral daily, Colace 100 mg twice daily, levothyroxine 75 mcg oral daily, Nasonex 2 sprays inhalation daily, multivitamin 2 tablets oral daily, Trileptal 300 mg oral twice daily, Trileptal 600 mg oral at bedtime, [place]-3 two capsules oral daily, omeprazole 20 mg oral daily, quetiapine fumarate 100 to 200 mg oral at bedtime for insomnia, venlafaxine ER 225 mg oral daily, vitamin B complex 1 tablet oral daily, and clonazepam 1 tablet before breakfast. DIET AFTER DISCHARGE: Usual diet as tolerated. Drink 8 to 10 glasses of water a day. ACTIVITY: Cough and deep breathe. No lifting greater than 10 pounds for 6 weeks. Driving after discharge, do not drive while on pain medication. Shower bathing, may shower. Notify provider of fever, increased pain, nausea, or vomiting. Wound incision care, keep site clean and dry. Use incentive spirometer 10 times every hour while awake.
== END 2017-01-04 17:00 | disposition home or self-care (01) | DRG 121 ==
LOC: JP.SDS 07:07 → JP.ICU 07:07 → EDSTATUS 09:30 → JP.MS 12-29 07:58
PROVIDERS: ADMIT Surgery; ATTEND Surgery
PROC: 0BQC0ZZ Repair Right Upper Lung Lobe, Open Approach (ICD-10-PCS; principal; 2016-12-25)
PROC: 0BBF0ZX Excision of Right Lower Lung Lobe, Open Approach, Diagnostic (ICD-10-PCS; principal; 2016-12-25)
PROC: 0W9900Z Drainage of Right Pleural Cavity with Drainage Device, Open Approach (ICD-10-PCS; principal; 2016-12-25)
PROC: 0WP9X0Z Removal of Drainage Device from Right Pleural Cavity, External Approach (ICD-10-PCS; 2017-01-03)
DX: J98.4 Other disorders of lung (principal); J86.0 Pyothorax with fistula; E83.42 Hypomagnesemia; D64.9 Anemia, unspecified; Z79.82 Long term (current) use of aspirin; F32.9 Major depressive disorder, single episode, unspecified; F41.9 Anxiety disorder, unspecified; E53.8 Deficiency of other specified B group vitamins; E78.5 Hyperlipidemia, unspecified; E53.9 Vitamin B deficiency, unspecified; K91.2 Postsurgical malabsorption, not elsewhere classified; Z98.84 Bariatric surgery status; Z98.0 Intestinal bypass and anastomosis status; I12.9 Hypertensive chronic kidney disease with stage 1 through stage 4 chronic kidney disease, or unspecified chronic kidney disease; N18.9 Chronic kidney disease, unspecified
CPT/HCPCS: 36415; 36600; 71010; 71010-26; 71020; 71020-26; 80048; 80053; 82728; 82803; 83735; 84100; 84443; 85027; 86850; 86900; 86901; 86920; 86922; 87070; 87075; 87077; 87102; 87186; 87205; 87220; 88307; 88312; 93005; 94060; A9270-GY; J0131; J0690; J0696; J1100; J1200; J1756; J2175; J2185; J2310; J2405; J2704; J3010; J3420; J3475; J7030; J7040; J7042; J7050; J7120; S0077